=== PATIENT | female | born 1975 | race Caucasian/White ===

== ENCOUNTER 2021-09-12 11:22 | Outpatient (REF) | payer OTHER, SELFPAY ==
[2021-09-12 14:35] LABS: Alanine Aminotransferase 30 U/L (0-31); Albumin Level 4.2 g/dL (3.5-5.0); Alkaline Phosphatase 21 U/L (39-117); Anion Gap 13 (12-20); Aspartate Amino Transferase 27 U/L (5-31); Bilirubin Total 0.8 mg/dL (0.0-1.0); Blood Urea Nitrogen 6 mg/dL (9-16); Calcium 9.2 mg/dL (8.4-10.2); Carbon Dioxide 24 mmol/L (22-29); Chloride 106 mmol/L (96-108); Cholesterol 197 mg/dL; Estimated Glomerular Filt Rate > 60; Glucose Fasting 81 mg/dL (60-99); HDL Cholesterol 50 mg/dL; LDL Cholesterol Calculated 124 mg/dl; Potassium 3.9 mmol/L (3.3-5.1); Sodium 139 mmol/L (135-145); Total Protein 6.9 g/dL (6.5-8.0); Triglycerides 119 mg/dL
[2021-09-12 14:48] LABS: TSH reflex Free T4 0.78 uIU/mL (0.32-4.0)
[2021-09-16 18:11] LABS: Vitamin A 41 mcg/dL (38-98)
== END 2021-09-12 11:23 | disposition home or self-care (01) ==
LOC: HO.WFDLDS 11:22
PROVIDERS: Visit Provider Family Medicine
DX: Z00.00 Encounter for general adult medical examination without abnormal findings (principal); H53.9 Unspecified visual disturbance
CPT/HCPCS: 36415; 80053; 80061; 84443; 84590

== ENCOUNTER 2023-11-02 11:52 | Outpatient (AMB) | payer OTHER, MEDICAID, SELFPAY ==
[2023-11-02 12:36] VITALS: BP 126/78; PULSE 81; O2SAT 98; BMI 33.9
--- NOTE | 2023-11-02 12:36 | MHC.OFFWIV ---
Intake Vital Signs 11/02/23 12:36 Height 5 ft 5 in Weight 204 lb BMI 33.9 BP 126/78 Blood Pressure Location Lt brachial Position Sitting Pulse 81 Pulse Source Pulse Oximeter Pulse Oximetry (%) 98 Oxygen Delivery Method Room Air Intake Visit Reasons: EP RT shoulder Intake Note: Patient is here with pain in right shoulder, hurts to even lift her arm since , getting worse. Patient Tobacco Use Status: Never used Tobacco Allergies No Known Allergies Allergy (Verified 11/02/23 12:56) Medication List - Last Reconciled 11/02/23 by Brittany Bean CNP No Known Home Meds Do you need a note to return to daycare/school/sports/work: No HPI HPI Comments History of Present Illness Details 48-year-old female presents to walk-in clinic for complaint of right shoulder pain x3 days. She denies Trauma, or injury, but does endorse working out on Saturday, Saturday, and Saturday and woke up and could not move her arm due to the pain. She has not taken anything for the pain, and is unable to put on her jacket or get dressed with out the help from her . She also tells this provider she has had this pain in her right shoulder intermittently for some time, but not as severe as this. She rates her pain a 10 on pain scale 0-10, she admits to right shoulder pain that radiates down her right arm, with associated numbness and tingling sensation of right hand and fingers. She denies neck pain, headache, fever, chills, CP, SOB, dizziness, abdominal pain, nausea, vomiting, changes in bowels or bladder. [facility] Surgical History No pertinent past surgical history Family History Mother No problems noted. Father No problems noted. Other Mental health disorder Social History Housing: House Alcohol intake: current Alcohol intake frequency: a few times a week Patient Tobacco Use Status: Never used Tobacco e-Cigarette/Vaping Use: Never Used Second Hand Smoke Exposure: No service: No Current occupational status: employed Current occupation: [employer] Cognitive needs: No Hearing needs: No Vision needs: Yes (Glasses) Review of Systems Const All systems reviewed & are unremarkable except as noted in HPI and below Physical Exam Vital Signs: Last Vital Signs Pulse 81 11/02/23 12:36 BP 126/78 11/02/23 12:36 Pulse Ox 98 11/02/23 12:36 Oxygen Delivery Method Room Air 11/02/23 12:36 BMI result Body Mass Index 33.9 Const General: healthy appearing and no acute distress Nutritional Appearance: overweight Orientation/consciousness: patient oriented x3 Limitations: other limitations (limitations of right arm) HEENT Head: Yes normal to inspection, Yes normocephalic and Yes atraumatic Ears: hearing grossly normal bilaterally and TM's normal bilaterally Mouth: moist mucous membranes Eyes General: appearance normal, both eyes and all related structures Neck Neck: Yes normal visual inspection, Yes full ROM, Yes no meningeal signs, Yes trachea midline and Yes supple Chest Chest palpation & inspection: normal inspection of the chest Resp Effort & Inspection: normal respiratory effort, no respiratory distress and not tachypneic Auscultation: clear to auscultation bilaterally Cardio Rate: regular rate Rhythm: regular rhythm Heart sounds: S1 normal heart sound present and S2 normal heart sound present Peripheral pulses: Peripheral pulses 2+ throughout GI Palpation (GI): Soft to palpation and nontender Auscultation: normal bowel sounds Neuro General: patient oriented x3, gait normal and no meningeal signs Extrem Right upper extremity: normal to inspection, normal capillary refill and shoulder/upper arm Details: tenderness Location: over the subacromial bursa, axillary nerve sensory function normal and abnormal ROM Details: pain with active ROM, pain with passive ROM and with range as follows (20% active ROM, 80% passive ROM); no swelling, no ecchymosis, no crepitus, no deformity and no unusual warmth; no cyanosis, no edema and joint enlargement noted Left upper extremity: normal to inspection, full ROM and normal capillary refill; no cyanosis Psych Appearance: well kempt Mental Status: mental status grossly normal Affect: normal affect Attitude: cooperative Results Reviewed Results Reviewed: [facility] [address] [place] [address] XRay Report Signed Patient: Gisela Baires MR#: [id number] : 1975 Acct:[id number] Age/Sex: 48 / F ADM Date: 11/02/23 Loc: HO.HMGCX Attending Dr: Brittany Bean CNP Ordering Physician: Brittany Bean CNP Date of Service: 11/02/23 Procedure(s): XR shoulder RT min 2V Accession Number(s): [id number] cc: Brittany Bean CNP~ EXAMINATION: XR SHOULDER, RIGHT CLINICAL INFORMATION: Pain COMPARISON: None available. TECHNIQUE: AP external rotation, Grashey, scapular Y, and axillary views of the right shoulder. FINDINGS: The bones and soft tissues are notable for moderate subacromial enthesophyte. No fracture. Glenohumeral and acromioclavicular alignment is anatomic with normal joint space. No abnormal soft tissue calcifications. XR/XR shoulder RT min 2V IMPRESSION: No acute findings. Moderate subacromial enthesophyte. Dictated By: Mario Vieira MD Signed By: <Electronically signed by Mario Vieira MD in OV> 11/02/23 1349 DD/ 1316 TD/TT: Kier Boiler: SL Assessment & Plan Assessment & Plan (1) Shoulder impingement syndrome: Code(s): M75.40 - Impingement syndrome of unspecified shoulder Qualifiers: Laterality: right Qualified Code(s): M75.41 - Impingement syndrome of right shoulder Plan: 48-year-old female seen in walk-in clinic for complaint of right shoulder pain x3 days, with previous reported intermittent right shoulder pain but more severe over the last 3 days. She denies Trauma, or injury, but does endorse working out on Saturday, Saturday, and Saturday and woke up and could not move her arm due to the pain. Xray of Right shoulder ordered and completed; provider reviewed results with patient; The bones and soft tissues are notable for moderate subacromial enthesophyte. No fracture. Glenohumeral and acromioclavicular alignment is anatomic with normal joint space. No abnormal soft tissue calcifications. Will treat with: 1. Tylenol 1000 mg, orally, every 6 hours as needed for right shoulder pain. 2. Lidocaine patch, available [id number] and should be apply to area of maximal tenderness as directed on the outside packaging. 3. Ibuprofen 800 mg, orally with milk or food, every 8 hours as needed for right shoulder pain. 4. Ice to muscle pain twice a day, may alternate w/ heat therapy. 5. Provided with right arm sling for comfort. 6. Encouraged to f/u with PCP for possible referral to Physical therapy, pain clinic for steroid injection if pain persists, and or referral to orthopedic Call office, or go to ER for acute worsening of symptoms. Orders: Orders XR shoulder RT min 2V 11/02/23 M25.511 - Pain in right shoulder Medications: New ibuprofen 800 mg PO Q8H PRN 20 tabs 0RF pain S46.911A - Strain of unspecified muscle, fascia and tendon at shoulder and upper arm level, right arm, initial encounter lidocaine 5% leave on most painful area for up to 12 hrs 1 patch topical DAILY 15 ea 0RF S46.911A - Strain of unspecified muscle, fascia and tendon at shoulder and upper arm level, right arm, initial encounter Coding Level of Care Code Est Pt Level 4 (75852) Diagnoses Impingement syndrome of right shoulder M75.41 Laterality: right
== END 2023-11-02 13:44 | disposition home or self-care (01) ==
PROVIDERS: PCP Family Medicine; Visit Provider Nurse Practitioner Acute Care
DX: M75.41 Impingement syndrome of right shoulder (principal)
CPT/HCPCS: 99051; 99214

== ENCOUNTER 2023-11-02 13:05 | Outpatient (REF) | payer OTHER, SELFPAY ==
--- NOTE | ~2023-11-02 | XR_ITS ---
EXAMINATION: XR SHOULDER, RIGHT CLINICAL INFORMATION: Pain COMPARISON: None available. TECHNIQUE: AP external rotation, Grashey, scapular Y, and axillary views of the right shoulder. FINDINGS: The bones and soft tissues are notable for moderate subacromial enthesophyte. No fracture. Glenohumeral and acromioclavicular alignment is anatomic with normal joint space. No abnormal soft tissue calcifications. XR/XR shoulder RT min 2V IMPRESSION: No acute findings. Moderate subacromial enthesophyte.
== END 2023-11-02 13:06 | disposition home or self-care (01) ==
LOC: HO.HMGCX 13:05
PROVIDERS: Visit Provider Nurse Practitioner Acute Care
DX: M25.511 Pain in right shoulder (principal)
CPT/HCPCS: 73030

== ENCOUNTER 2023-11-06 12:20 | Outpatient (AMB) | payer OTHER, MEDICAID, SELFPAY ==
--- NOTE | 2023-11-06 12:32 | MHC.PC.OV ---
Vital Signs 11/06/23 12:34 Height 5 ft 5 in Weight 210 lb BMI 34.9 BP 121/72 Blood Pressure Location Lt brachial Position Sitting Pulse 73 Pulse Source Pulse Oximeter Pulse Oximetry (%) 99 Oxygen Delivery Method Room Air Intake Visit Reasons: shoulder pain Intake Note: Patient is here for follow up on right shoulder pain. Allergies No Known Allergies Allergy (Verified 11/06/23 12:35) Tobacco use date assessed: 11/06/23 Dental Screening Dental Screen Date: 11/06/23 HPI HPI Comments History of Present Illness Details Here today to follow-up on right shoulder pain. She was seen at the walk-in on 11/02/2023. At this visit an x-ray of the right shoulder was done and this shows that the bones and soft tissues are notable for moderate subacromial enthesophyte. No fracture. Glenohumeral and AC alignment is anatomic with normal joint space no abnormal soft tissue calcifications. She was discharged home with supportive care and advised to follow-up here at primary care to discuss referral for physical therapy or perhaps pain management. Since this time she has been using Tylenol and ibuprofen. Admits that she is not taking very often though she does not like to take medications. She has been resting the arm as well as applying ice. She admits that the right shoulder is overall better and her range of motion is also better since the last visit. She use the sling for 2 days and is no longer using it. She is very eager to get back to her normal way of life which includes exercising at the gym daily reviewed the mechanism of injury and noted that she had repetitive pulling and pushing motions as well as kettle gutierrez overhead exercises prior to the onset of her pain. She is willing and would like to participate in physical therapy [facility] Surgical History No pertinent past surgical history Family History Mother No problems noted. Father No problems noted. Other Mental health disorder Social History Housing: House Alcohol intake: current Alcohol intake frequency: a few times a week Patient Tobacco Use Status: Never used Tobacco e-Cigarette/Vaping Use: Never Used Second Hand Smoke Exposure: No service: No Current occupational status: employed Current occupation: [employer] Cognitive needs: No Hearing needs: No Vision needs: Yes (Glasses) Questionnaire Thrive Questionnaire Date Thrive assessed: 09/12/21 JUANCHO-7 AMB Questionnaire JUANCHO-7 Date JUANCHO - 7 assessed: 09/12/21 Source: Developed by Drs. Saravanan Adam, Barb Ariza, José Allen and colleagues, with an educational kori from [employer]. Review of Systems Const All systems reviewed & are unremarkable except as noted in HPI and below Physical exam (Primary Care) Vital Signs: Last Vital Signs Pulse 73 11/06/23 12:34 BP 121/72 11/06/23 12:34 Pulse Ox 99 11/06/23 12:34 Oxygen Delivery Method Room Air 11/06/23 12:34 BMI result Body Mass Index 34.9 Tobacco/Smoking Status: Tobacco use Status Tobacco use date assessed 11/06/23 11/06/23 12:37 Patient Tobacco Use Status Never used Tobacco 11/06/23 12:32 e-Cigarette/Vaping Use Never Used 11/06/23 12:32 Thrive Assessment: Date of Thrive Assessment Date Thrive assessed 09/12/21 11/06/23 12:32 Const Other: Alert oriented and appropriate Speaking in full sentences Right upper extremity normal to inspection, normal capillary refill continues with tenderness with palpation over subacromial bursa, axillary nerve sensory function normal. Pain with active range of motion as well as passive range of motion although improved from the previous assessment. There is no swelling, no ecchymosis, no crepitus, no unusual warmth, no cyanosis or joint enlargement noted Assessment and Plan Assessment & Plan (1) Shoulder impingement syndrome: Code(s): M75.40 - Impingement syndrome of unspecified shoulder Qualifiers: Laterality: right Qualified Code(s): M75.41 - Impingement syndrome of right shoulder (2) Muscle strain of right shoulder: Code(s): S46.911A - Strain of unspecified muscle, fascia and tendon at shoulder and upper arm level, right arm, initial encounter Qualifiers: Encounter type: initial encounter Qualified Code(s): S46.911A - Strain of unspecified muscle, fascia and tendon at shoulder and upper arm level, right arm, initial encounter (3) Severe pain of right shoulder: Code(s): M25.511 - Pain in right shoulder Plan Discussed the mechanism of injury. Advised to avoid any repetitive motions or any movements that exacerbate the shoulder. I have also advised her against complete immobility and use the sling as this can put her at risk for frozen shoulder. I provided her with several exercises that she should try. She should also participate in physical therapy and referral has been placed today. She can continue to use the Tylenol and NSAIDs as needed Total time spent caring for the patient today was 30 minutes. This includes time spent before the visit reviewing the chart, time spent during the visit, and time spent after the visit on documentation This note is constructed using voice recognition software. While every effort has been made to ensure accuracy in production line worker, still errors may have been included Sometimes, these errors may affect the content or meaning of the given sentence . Orders: Orders PT Evaluation and Treatment Today M25.511 - Pain in right shoulder, M75.40 - Impingement syndrome of unspecified shoulder, S46.911A - Strain of unspecified muscle, fascia and tendon at shoulder and upper arm level, right arm, initial encounter Coding Level of Care Code Est Pt Level 4 (19069) Diagnoses Impingement syndrome of right shoulder M75.41 Laterality: right Muscle strain of right shoulder, initial encounter S46.911A Encounter type: initial encounter Severe pain of right shoulder M25.511
[2023-11-06 12:34] VITALS: BP 121/72; PULSE 73; O2SAT 99; BMI 34.9
== END 2023-11-06 13:08 | disposition home or self-care (01) ==
PROVIDERS: PCP Family Medicine; Visit Provider Nurse Practitioner Family
DX: M75.41 Impingement syndrome of right shoulder (principal); S46.911A Strain of unspecified muscle, fascia and tendon at shoulder and upper arm level, right arm, initial encounter; M25.511 Pain in right shoulder
CPT/HCPCS: 99214

== ENCOUNTER 2024-01-28 11:00 | Outpatient (RCR) | payer OTHER, SELFPAY ==
--- NOTE | 2023-11-21 16:00 | MHC.PT.EP ---
[facility] [place] [facility] [place] [facility] [place] [facility] [address] [place] [address] [phone] F: [phone] F: [phone] F: [phone] F: [phone] Physical Therapy Plan of Care Date of Evaluation: 11/18/23 Date of Surgery: Diagnosis: M75.40 Impingement syndrome of unspecified shoulder, S46.911A Strain of unspecified muscle, fascia and tendon, at shoulder and upper arm level, right, initial encounter, M25.511 Pain in R shoulder, Shoulder impingement syndrome, muscle strai of R shoulder, Severe pain in R shoulder date of referral 11/07/23 Alina REGANLILIA Assessment: 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 Pt exhibits decreased AROM (near full PROM with some pain end range), impaired strength, and reports pain in neck and shoulder with active elevation. Pt expressing intermittent parathesias radiating down R UE (no specific patterning noted). Pt would benefit from attending skilled PT services at a frequency of 2x/week x 4-6 weeks to address impairments. At [facility], negative cervical screening was noted. Pt expressing onset of sx began when using weighted kettlebells (flexion swings) during boot-camp classes 3x in a row. Pt reports after this was unable to lift her arm for a short duration. Pt was given a sling which she used for a short duration of time after being seen by walk-in office. Pt obtained xrays. At time of evaluation, pt exhibited signs and sx consistent with bicep tendonitis, however pt was also noted to exhibit sx with shoulder flexion and IR of shoulder during exam. Addendum: During follow up screening on 11/21/23 clustering of sx was positive for TOS. Pt (+) NAN, costoclavicular testing, overhead and elevation triggered paratheisas. Some relief was noted with brief trial of manual cervical traction (-) vertebral artery testing completed prior to attempt of manual C-tx). Pt was educated re: doorway/pectoralis/cervical stretches in sitting/standing with triggering of sx. Pt will benefit from a stretching postural program with a heavy HEP program to address sx. Pt will be seen in the office at a frequency of 2x/week x 4-6 weeks to address. Should sx not improve, centralize/resolve with therapy, patient may benefit from a follow up to determine next course of imaging/need for MRI. Frequency and Duration: The patient will be seen 2x/week x 6 weeks Short Term Goals: 1. Pt will demonstrate 25% reduction in SPADI pain score. 2. Pt will demonstrate carryover of self care/management of sx/initiate HEP. 3. Pt will demonstrate AAROM flexion to 110 degrees. 4. Pt will demonstrate strength R shoulder flexion to 4/5. 5. Pt will centralize R UE sx to height of C/S. Group Home Goals: 1. I HEP. 2. Resume gym participation with good carryover of self management/skills. 3. Pt will demonstrate R shoulder AROM to symmetry to resemble L UE. 4. Strength 5/5 throughout R UE. 5. Sleeping/working/exercise MOD I R UE without sx. Treatment Plan: Modalities to reduce pain, spasms and effusion. Manual therapy to restore motion and function. Therapeutic exercise to improve strength and flexibility. Neuromuscular re-education for posture and balance. Therapeutic activities to return to functional activities of daily living. Electronically signed by: Elizabeth Wolf, PT, DPT Please sign and return to therapist. Thank you for your referral.
--- NOTE | 2024-02-10 11:08 | MHC.PT.OD ---
[facility] [place] [facility] [place] [facility] [place] [facility] [address] [place] [address] [phone] F: [phone] F: [phone] F: [phone] F: [phone] Physical Therapy Daily Note Diagnosis: M75.40 Impingement syndrome of unspecified shoulder, S46.911A Strain of unspecified muscle, fascia and tendon, at shoulder and upper arm level, right, initial encounter, M25.511 Pain in R shoulder, Shoulder impingement syndrome, muscle strai of R shoulder, Severe pain in R shoulder date of referral 11/07/23 Alina SAMUELP- Date of Surgery: Date of Evaluation: 11/18/23 Date of Treatment: 01/28/24 Treatments to Date: Cancellations to Date: No Shows to Date: Authorized Visits: 9 Insurance End Date: Precautions/ Contraindications: Subjective: Has not been in PT since 01/07/24. Continues to have pain with daily task, unable to tolerate weight- training. Pt state Pain Score and Location: Objective Flowsheet: Tests & Measures 6/10, icing a few times per week, not taking anything over the counter. Exercises UE SCI-FIT bike level 2.0 x 10 minutes posteriorly Tricep extension with RTB x 3 sets 10R, upright rows with RTB x 3 sets 10R, shoulder extension with RTB x 2 sets 10R, review of scap retraction against foam roller x 2 sets 10R, shoulder row with RTB with scap retraction, review of performing exercises that do not cause pain, review of ROM IASTM to R UT in effort to ease mm tension and ease pain. Reviewed stretches with good carryover reported. Modalities Pt defer traction this date. Assessment: 01/28/24: Pt started PT on 11/18/23 and has attended 9 session of PT demonstrating some limited improvement with limited gains in mobility/pain of her R UE. Pt would benefit from referral to orthopedics and/or MRI of the L shoulder as she continues to have pain, limited range of motion, and weakness. Pt continues to exhibits pain rating 6/10 and has limited tolerance for AROM. She has painful arc, (+) ttp supraspinatus, subscapularis and long head biceps. In PT patient has completed AAROM/AROM of the R shoulder, periscap, and RTC strengthening. Initially she had radiating pain into her hand which has since centralized. She has had limited tolerance for weight-bearing exercises and admits to trying other exercises at home on her own (even some which she has been advised to hold from due to mechanics/trigger of sx). Pt was encouraged to make a follow up with her PCP to discuss status and place a referral to orthopedics. She has not been icing her shoulder or taking any over the counter with any consistency (was icing more before but has since stopped doing this). She was educated in the benefit of performing exercises which are pain free and benefit of ice prn to aide in pain of R shoulder. 01/07/24: Pt expressing no parathesias in her UE, reports doing well in regard to HEP but still having sx when reaching or moving quickly. Pt remains weak in lower and middle trap, sx with trial of prone raises over pball, therefore was stopped and reduced to hooklying with band with better outcomes. 12/23/23: Pt doing well, encouraged to increase reps of exercise to tolerance without increasing weights. Pt encouraged to perform 3# and advance reps. Pt expressing fatigue at end of session. Pt requesting to trial I HEP. Pt educated re: mechanics of shoulder/neck to maximize gains. 12/09/23 Doing well in regard to centralization of sx, fatigues quickly with gentle strengthening program. 12/05/23: Pt demonstrating positive response to strengthening activities with reduction in sx. Pt defer traction and taping this date, expresses centralization of sx. 12/02/23: (Had to leave early today due to conflicting appt afterwards). Pt demonstrating positive early response to traction treatment; increased hold time for fifteen minutes this date with good ability. 11/29/23: Pt expressing early positive response to stretches with centralization and reduction in intensity of sx reported. Pt was initiated with trial of [employer] C-tx unit with positive response, further centralization of sx. At start of visit, parathesias present digits 3-5 in R UE, upon completion of traction digit sx reduced to height of C/S. Sx expressed R periscap, reduced with C-tx. Pt encouraged to work on posture, pay attention to position and encouraged to stretch often throughout the day. Will plan to add postural strengthening task next visit. 11/21/23: Pt's sx triggered with active/aarom elevation. Positive clustering for TOS (+) TTP sx triggered with palpation distal clavicle and first rib on R. Pt notes to have change in temperature (cold to touch) of R UE compared to L. Reports parathesias are variable fro first 3 to last 3 (difficult to discern). Pt encouraged to perform low reps, high frequency of stretches to tolerance. Pt encouraged to consider obtaining wale for home use. 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 Pt exhibits decreased AROM (near full PROM with some pain end range), impaired strength, and reports pain in neck and shoulder with active elevation. Pt expressing intermittent parathesias radiating down R UE (no specific patterning noted). Pt would benefit from attending skilled PT services at a frequency of 2x/week x 4-6 weeks to address impairments. At al, negative cervical screening was noted. Pt expressing onset of sx began when using weighted kettlebells (flexion swings) during boot-camp classes 3x in a row. Pt reports after this was unable to lift her arm for a short duration. Pt was given a sling which she used for a short duration of time after being seen by walk-in office. Pt obtained xrays. At time of evaluation, pt exhibited signs and sx consistent with bicep tendonitis, however pt was also noted to exhibit sx with shoulder flexion and IR of shoulder during exam. Addendum: During follow up screening on 11/21/23 clustering of sx was positive for TOS. Pt (+) NAN, costoclavicular testing, overhead and elevation triggered paratheisas. Some relief was noted with brief trial of manual cervical traction (-) vertebral artery testing completed prior to attempt of manual C-tx). Pt was educated re: doorway/pectoralis/cervical stretches in sitting/standing with triggering of sx. Pt will benefit from a stretching postural program with a heavy HEP program to address sx. Pt will be seen in the office at a frequency of 2x/week x 4-6 weeks to address. Should sx not improve, centralize/resolve with therapy, patient may benefit from a follow up to determine next course of imaging/need for MRI. PT Plan: Assess response to cervical stretches, AAROM shoulder flexion Add progression rows/ext postural strengthening next visit. Short Term Goals: 1. Pt will demonstrate 25% reduction in SPADI pain score. 2. Pt will demonstrate carryover of self care/management of sx/initiate HEP. 3. Pt will demonstrate AAROM flexion to 110 degrees. 4. Pt will demonstrate strength R shoulder flexion to 4/5. 5. Pt will centralize R UE sx to height of C/S. Snf Goals: 1. I HEP. 2. Resume gym participation with good carryover of self management/skills. 3. Pt will demonstrate R shoulder AROM to symmetry to resemble L UE. 4. Strength 5/5 throughout R UE. 5. Sleeping/working/exercise MOD I R UE without sx. Electronically signed by: Elizabeth Wolf, PT, DPT
== END 2024-03-30 07:47 | disposition home or self-care (01) ==
LOC: HO.PTWFD 11:00
PROVIDERS: PCP Family Medicine; Visit Provider Nurse Practitioner Family
DX: M75.40 Impingement syndrome of unspecified shoulder (principal); S46.911A Strain of unspecified muscle, fascia and tendon at shoulder and upper arm level, right arm, initial encounter; M25.511 Pain in right shoulder
CPT/HCPCS: 97012; 97110; 97140; 97150; 97161; 97535

== ENCOUNTER 2024-08-20 11:56 | Outpatient (AMB) | payer OTHER, SELFPAY ==
--- NOTE | 2024-08-20 12:16 | A.OFFPC_ITS ---
Vital Signs 08/20/24 12:18 Height 5 ft 6 in Weight 189 lb BMI 30.5 BP 114/62 Blood Pressure Location Lt brachial Position Sitting Pulse 83 Pulse Source Pulse Oximeter Pulse Oximetry (%) 98 Oxygen Delivery Method Room Air Intake Visit Reasons: Physical Allergies No Known Allergies Allergy (Verified 08/20/24 12:20) Medication List - Last Reconciled 08/20/24 by SHEREEN Wong-LILIA Tobacco use date assessed: 11/06/23 Dental Screening Dental Screen Date: 11/06/23 HPI HPI Comments History of Present Illness Details 49 y/o F with perimenopause, obesity Health Maintenance: ? Colon has never had one done ? Mammo 2020, last one 2022 @ [facility], wishes to do this every other year ? DEXA n/a ? 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 Tdap declined Flu - declined Specialists: Optho, wears glasses Ortho Chiro Derm Here today for CPE & Pre-op For general wellness: Completed PT for R shoulder. She cont w/ pain and having stiffness, difficult ROM. Sx are worse at night. Wonders about additional f/u. Will be going to chiro for back pain, has chronic back and joint pain Last eye exam 11/2023 Skin dry patch on cheek, right, active w/ [facility] Here today for preoperative clearance. Surgery Type: ETT and BBL Anesthesia Type: General Surgeon: Kobi Ramos [address] [place] [address] Date: October 14 2024 Any past surgical procedures: yes Any complications from anesthesia or in post-op period: none ASA or NSAID Use: none Current smoker: no Alcohol use: no Drug use: no METs: > 4 climb flight of stairs, golf, walk, yardwork Medical history: Asthma no COPD no Obesity BMI 30.5 Diabetes no Education Aspirin and NSAIDS should be discontinued one week before surgery to prevent excessive bleeding. If you are a smoker, there is increase risk of post surgical complications. Cessation is encouraged. Follow up with surgeon and all recommendations pre and post operatively. Plan: Patient is aware that she will not be medically Claritin until she completes the required labs, diagnostics. These are ordered for her and she should get them done within the timeframe requested by the surgeon. Once these are available to review I can add an addendum for surgical clearance. In other regards, return to the office in 1 year for complete physical exam, sooner as needed. An additional 30 minutes was spent addressing the problem(s) noted at todays visit. This includes time spent before the visit reviewing the chart, time spent during the visit, and time spent after the visit on documentation [facility] Surgical History No pertinent past surgical history Family History Mother No problems noted. Father No problems noted. Other Mental health disorder Social History Housing: House Alcohol intake: current Alcohol intake frequency: a few times a week Patient Tobacco Use Status: Never used Tobacco e-Cigarette/Vaping Use: Never Used Second Hand Smoke Exposure: No service: No Current occupational status: employed Current occupation: [employer] Cognitive needs: No Hearing needs: No Vision needs: Yes (Glasses) Questionnaire PHQ-9 Over the last 2 weeks, how often have you been bothered by any of the following problems? 1. Little interest or pleasure in doing things: not at all 2. Feeling down, depressed, or hopeless: not at all 3. Trouble falling or staying asleep, or sleeping too much: not at all 4. Feeling tired or having little energy: not at all 5. Poor appetite or overeating: not at all 6. Feeling bad about yourself - or that you are a failure or have let yourself or your family down: not at all 7. Trouble concentrating on things, such as reading the newspaper or watching television: not at all 8. Moving or speaking so slowly that other people could have noticed. Or the opposite - being so fidgety or restless that you have been moving around a lot more than usual: not at all 9. Thoughts that you would be better off or of hurting yourself in some way: not at all Total score: 0 Depression Screening Interpretation: Negative Depression Screening Done: Yes 11346 - PHQ-9 Billing: Yes Source: Developed by Drs. Saravanan Adam, Barb Ariza, José Allen and colleagues, with an educational kori from [employer]. Thrive Questionnaire Date Thrive assessed: 08/13/24 I am a: Patient What is your living situation today?: I have a steady place to live Within the past 12 months, did the food you bought not last and you didn't have the money to get more?: Never true Within the past 12 months, did you worry whether your food would run out before you got money to buy more?: Never true Do you have trouble paying for medicines?: No Do you have trouble getting transportation to medical appointments?: No Do you have trouble paying your heating and electricity bill?: No Do you have trouble taking care of your child, family member or friend?: No Do you have trouble with day-to-day activities such as bathing, preparing meals, shopping, managing finances, etc.?: No Are you currently unemployed and looking for a job?: No Are you interested in more education?: No Please select the resources that you would like help with: None THRIVE Score: 0 AUDIT C Alcohol Use Questionnaire (AUDIT-C) 1. How often do you have a drink containing alcohol?: 2-4 times a month 2. How many drinks containing alcohol do you have on a typical day when you are drinking?: 1 or 2 Total Score: 2 Score Reviewed/Action Taken: Yes JUANCHO-7 AMB Questionnaire JUANCHO-7 Date JUANCHO - 7 assessed: 08/20/24 Feeling nervous, anxious, or on edge: 0 = Not at all Not being able to stop or control worryin = Not at all Worrying too much about different things: 0 = Not at all Trouble relaxin = Not at all Being so restless that it is hard to sit still: 0 = Not at all Becoming easily annoyed or irritable: 0 = Not at all Feeling afraid as if something awful might happen: 0 = Not at all Total JUANCHO-7 score (0-4 normal; 5-9 mild; 10-14 moderate; 15-21 severe): 0 Source: Developed by Drs. Saravanan Adam, Barb Ariza, José Allen and colleagues, with an educational kori from [employer]. JUANCHO-7 Assessment Billing JUANCHO-7 Assessment Tool: JUANCHO-7 Assessment 13621 Physical exam (Primary Care) Vital Signs: Last Vital Signs Pulse 83 08/20/24 12:18 BP 114/62 08/20/24 12:18 Pulse Ox 98 08/20/24 12:18 Oxygen Delivery Method Room Air 08/20/24 12:18 BMI result Body Mass Index 30.5 BMI Assessment/Plan discussion: High BMI High, discussed plan: lifestyle Tobacco/Smoking Status: Tobacco use Status Tobacco use date assessed 11/06/23 08/20/24 12:20 Patient Tobacco Use Status Never used Tobacco 08/20/24 12:20 e-Cigarette/Vaping Use Never Used 08/20/24 12:20 PHQ-9: PHQ-9 Score PHQ-9: Total score 0 08/20/24 12:42 Depression Screening Interpretation: Negative Thrive Assessment: Date of Thrive Assessment Date Thrive assessed 08/13/24 08/20/24 12:20 Const Other: General: Well developed, well nourished, in no acute distress. Appears stated age. Head: Normocephalic, atraumatic. Eyes: Pupils are equal, round and reactive to light and accommodation. Conjunctivae are clear. Vision grossly normal. Ears: TMs clear AU, EACS WNL Nose: Patent, without discharge. Mouth: There are no ulcers or lesions noted. No inflammation, no post nasal drip, no plaques nor exudates. Neck: Supple, no adenopathy or thyromegaly. Lungs: Clear to auscultation bilaterally. No rales, rhonchi or wheeze noted. Good air flow in all wyatt. Heart: Regular rate and rhythm. No murmurs, click, rubs or gallops are noted. Abdomen: Bowel sounds present in all quadrants. The abdomen is soft, nontender, with no masses or organomegaly noted. No hernias are noted. Musculoskeletal: Joints are nontender, without swelling, redness, or effusions. Range of motion is observed to be normal. Pulses: Peripheral pulses are equal and palpable bilaterally. Extremities: No clubbing, cyanosis nor edema is noted. Neurologic: Gait and station normal. Cranial Nerves 2-12 intact. Motor strength grossly symmetrical and intact. No sensory loss. Balance normal. Skin: No rashes, ulcers, or lesions noted. Turgor is good. Skin color is good. Hair and nails are without abnormalities. Psych: Normal eye contact, affect and mood appropriate, and normal interactions. Patient is alert and appropriate to context. Coding Level of Care Code Est Pt Level 4 (57116) Est Pt Prev Care 40-64y(59871) Diagnoses Encounter for general adult medical examination with abnormal findings Z00.01 Severe pain of right shoulder M25.511 Pre-operative clearance Z01.818 Muscle strain of right shoulder, initial encounter S46.911A Encounter type: initial encounter Impingement syndrome of right shoulder M75.41 Laterality: right Screen for colon cancer Z12.11 Laboratory exam ordered as part of routine general medical examination Z00.00 Vegetarian diet Z78.9 BMI 30.0-30.9,adult Z68.30 Obesity, Class I, BMI 30.0-34.9 (see actual BMI) E66.811 Additional Codes JUANCHO-7 Assessment Billing - JUANCHO-7 Assessment Tool: JUANCHO-7 Assessment 71555 ([id number]) PHQ-9 - 03433 - PHQ-9 Billing: Yes ([id number]) Assessment & Plan Assessment & Plan (1) Encounter for general adult medical examination with abnormal findings: Code(s): Z00.01 - Encounter for general adult medical examination with abnormal findings Plan: . (2) Severe pain of right shoulder: Code(s): M25.511 - Pain in right shoulder Category: Medical Plan: . (3) Pre-operative clearance: Code(s): Z01.818 - Encounter for other preprocedural examination Category: Medical Plan: . (4) Muscle strain of right shoulder: Code(s): S46.911A - Strain of unspecified muscle, fascia and tendon at shoulder and upper arm level, right arm, initial encounter Category: Medical Qualifiers: Encounter type: initial encounter Qualified Code(s): S46.911A - Strain of unspecified muscle, fascia and tendon at shoulder and upper arm level, right arm, initial encounter Plan: . (5) Shoulder impingement syndrome: Code(s): M75.40 - Impingement syndrome of unspecified shoulder Category: Medical Qualifiers: Laterality: right Qualified Code(s): M75.41 - Impingement syndrome of right shoulder Plan: . (6) Screen for colon cancer: Code(s): Z12.11 - Encounter for screening for malignant neoplasm of colon Category: Medical Plan: . (7) Laboratory exam ordered as part of routine general medical examination: Code(s): Z00.00 - Encounter for general adult medical examination without abnormal findings Category: Medical Plan: . (8) Vegetarian diet: Code(s): Z78.9 - Other specified health status Category: Social Hx Plan: . (9) BMI 30.0-30.9,adult: Code(s): Z68.30 - Body mass index [BMI] 30.0-30.9, adult Category: Medical Plan: . (10) Obesity, Class I, BMI 30.0-34.9 (see actual BMI): Code(s): E66.811 - Obesity, class 1 Category: Medical Plan: . Orders: Orders Drug Screen Urine Today Z.818 - Encounter for other preprocedural examination ECG 12 lead EKG Today Z.818 - Encounter for other preprocedural examination Prothrombin Time INR Today Z.818 - Encounter for other preprocedural examination Mixing Study (PT/PTT) Today Z.818 - Encounter for other preprocedural examination UA CC w/rflx Micro + Cult Today Z.818 - Encounter for other preprocedural examination HIV Ab/Ag Today Z.818 - Encounter for other preprocedural examination Nicotine and Metabolite, Quant Today Z01.818 - Encounter for other preprocedural examination TSH reflex Free T4 Today Z00.00 - Encounter for general adult medical examination without abnormal findings Microalbumin, Random (w Creat) Today Z00.00 - Encounter for general adult medical examination without abnormal findings Lipid Panel Today Z00.00 - Encounter for general adult medical examination without abnormal findings Hemoglobin A1c Today Z00.00 - Encounter for general adult medical examination without abnormal findings Vitamin B12 and Folate Today Z78.9 - Other specified health status Complete Blood Count no Diff Today Z.818 - Encounter for other preprocedural examination Comprehensive Met. Panel Today Z.818 - Encounter for other preprocedural examination HCG Quantitative Today Z.818 - Encounter for other preprocedural examination Referrals Orthopedics Referral M25.511 - Pain in right shoulder, M75.41 - Impingement syndrome of right shoulder, S46.911A - Strain of unspecified muscle, fascia and tendon at shoulder and upper arm level, right arm, initial encounter Gastroenterology Referral Z12.11 - Encounter for screening for malignant neoplasm of colon Patient Instructions: Health screenings for women You should visit your health care provider from time to time, even if you are healthy. The purpose of these visits is to: Screen for medical issues Assess your risk for future medical problems Encourage a healthy lifestyle Update vaccinations and other preventive care services Help you get to know your provider in case of an illness Information Even if you feel fine, you should still see your provider for regular checkups. These visits can help you avoid problems in the future. For example, the only way to find out if you have high blood pressure is to have it checked regularly. High blood sugar and high cholesterol levels also may not have any symptoms in the early stages. A simple blood test can check for these conditions. There are specific times when you should see your provider or receive specific health screenings. The [place] Preventive Services Task Force publishes a list of recommended screenings. Below are screening guidelines for women ages 18 to 39. BLOOD PRESSURE SCREENING Your blood pressure should be checked at least once every 3 to 5 years if: Your blood pressure is in the normal range (top number less than 120 mm Hg and bottom number less than 80 mm Hg) You don't have risk factors for high blood pressure Ask your provider if you need your blood pressure checked more often if: The top number is 120 to 129 mm Hg or the bottom number is 70 to 79 mm Hg You have diabetes, heart disease, kidney problems, are overweight, or have certain other health conditions You have a first-degree relative with high blood pressure You are Black You had high blood pressure during a If the top number is 130 mm Hg or greater or the bottom number is 80 mm Hg or greater, this is considered stage 1 hypertension. Schedule an appointment with your provider to learn how you can reduce your blood pressure. Watch for blood pressure screenings in your area. Ask your provider if you can s top in to have your blood pressure checked. BREAST CANCER SCREENING Experts do not agree about the benefits of breast self-exams in finding breast cancer or saving lives. Talk to your provider about what is best for you. A screening mammogram is not recommended for most women under age 40. Your provider may discuss and recommend mammograms, MRI scans, or ultrasounds if you have an increased risk for breast cancer, such as: A mother or sister who had breast cancer at a young age (most often starting screening earlier than the age the close relative was diagnosed) You carry a high-risk genetic marker CERVICAL CANCER SCREENING Cervical cancer screening should start at age 21 years unless your provider advises otherwise. After the first test: Women ages 21 through 29 should have a Pap test every 3 years. Exoprts do not agree on whether HPV testing is recommended for this age group. Women ages 30 through 65 should be screened with either a Pap test every 3 years or the HPV test every 5 years or both tests every 5 years (called cotesting ). Women who have been treated for precancer (cervical dysplasia) should continue to have Pap tests for 20 years after treatment or until age 65, whichever is longer. If you have had your uterus and cervix removed (total hysterectomy), and you have not been diagnosed with cervical cancer or precancer (high grade cervical neoplasia), you do not need cervical cancer screening. CHOLESTEROL SCREENING Cholesterol screening should begin at: Age 45 for women with no known risk factors for coronary heart disease Age 20 for women with known risk factors for coronary heart disease Repeat cholesterol screening should take place: Every 5 years for women with normal cholesterol levels More often if changes occur in lifestyle (including weight gain and diet) More often if you have diabetes, heart disease, kidney problems, or certain other conditions DIABETES SCREENING You should be screened for diabetes starting at age 35 and then repeated every 3 years if you have no risk factors for diabetes. Screening may need to start earlier and be repeated more often if you have other risk factors for diabetes, such as: You have a first degree relative with diabetes. You are overweight or have obesity. You have high blood pressure, prediabetes, or a history of heart disease. Screening for diabetes should be done if you are planning to become and you are overweight and have other risk factors such as high blood pressure. DENTAL EXAM Go to the dentist once or twice every year for an exam and cleaning. Your dentist will evaluate if you need more frequent visits. EYE EXAM Have an eye exam every 5 to 10 years before age 40. If you have vision problems, have an eye exam every 2 years or more often if recommended by your provider. You should have an eye exam that includes an examination of your retina (back of your eye) at least every year if you have diabetes. IMMUNIZATIONS Commonly needed vaccines include: Flu shot: get one every year. COVID-19 vaccine: ask your provider what is best for you. Tetanus-diphtheria and acellular pertussis (Tdap) vaccine: have one at or after age 19 as one of your tetanus-diphtheria vaccines if you did not receive it as an adolescent. Tetanus-diphtheria: have a booster (or Tdap) every 10 years. Varicella vaccine: receive 2 doses if you never had chickenpox or the varicella vaccine. Hepatitis B vaccine: receive 2, 3, or 4 doses, depending on your exact circumstances. Measles, mumps, and rubella (MMR) vaccine: receive 1 to 2 doses if you are not already immune to MMR. Your provider can tell you if you are immune. Ask your provider about the human papillomavirus (HPV) vaccine if: You have not received the HPV vaccine in the past You have not completed the full vaccine series (you should catch up on this shot) Ask your provider if you should receive other immunizations if you have certain health problems that increase your risk for some diseases such as pneumonia. INFECTIOUS DISEASE SCREENING Women who are sexually active should be screened for chlamydia and gonorrhea up until age 25. Women 25 years and older should be screened for chlamydia and gonorrhea if at high risk. Screening for hepatitis C: All adults ages 18 to 79 should get a one-time test for hepatitis C. people should be screened at every . Screening for human immunodeficiency virus (HIV): All people ages 15 to 65 should get a one-time test for HIV. Depending on your lifestyle and medical history, you may also need to be screened for infections such as syphilis and HIV, as well as other infections. PHYSICAL EXAM All adults should visit their provider from time to time, even if they are healthy. The purpose of these visits is to: Screen for disease Assess your risk of future medical problems Encourage a healthy lifestyle Update your vaccinations and other preventive care services Maintain a relationship with a provider in case of an illness Your height, weight, and BMI should be checked at every exam. During your exam, your provider may ask you about: Depression and anxiety Diet and exercise Alcohol and tobacco use Safety issues, such as using seat belts, smoke detectors, and intimate partner violence Your medicines and risk for interactions SKIN SELF-EXAM Your provider may check your skin for signs of skin cancer, especially if you're at high risk, such as if you: Have had skin cancer before Have close relatives with skin cancer Have a weakened immune system OTHER SCREENING Talk with your provider about colon cancer screening if you have a strong family history of colon cancer or polyps, or if you have had inflammatory bowel disease or polyps yourself. Routine bone density screening of women under 40 is not recommended.
[2024-08-20 12:18] VITALS: BP 114/62; PULSE 83; O2SAT 98; BMI 30.5
== END 2024-08-20 12:50 | disposition home or self-care (01) ==
PROVIDERS: PCP Nurse Practitioner Family; Visit Provider Nurse Practitioner Family
DX: Z00.00 Encounter for general adult medical examination without abnormal findings (principal); M25.511 Pain in right shoulder; Z01.818 Encounter for other preprocedural examination; S46.911A Strain of unspecified muscle, fascia and tendon at shoulder and upper arm level, right arm, initial encounter; Z68.30 Body mass index [BMI] 30.0-30.9, adult; E66.811 Obesity, class 1; M75.41 Impingement syndrome of right shoulder; Z12.11 Encounter for screening for malignant neoplasm of colon; Z78.9 Other specified health status

== ENCOUNTER → 2024-08-20 11:56 | Outpatient (BNVA) | payer OTHER, SELFPAY | PROVIDERS: PCP Family Medicine; Visit Provider Nurse Practitioner Family | DX: Z00.01 Encounter for general adult medical examination with abnormal findings (principal); M25.511 Pain in right shoulder; S46.911A Strain of unspecified muscle, fascia and tendon at shoulder and upper arm level, right arm, initial encounter; M75.41 Impingement syndrome of right shoulder; E66.811 Obesity, class 1; Z68.30 Body mass index [BMI] 30.0-30.9, adult; Z78.9 Other specified health status | CPT/HCPCS: 96127 ==

== ENCOUNTER 2024-08-25 09:21 | Outpatient (REF) | payer OTHER, SELFPAY ==
[2024-08-25 11:19] LABS: Hematocrit 41.4 % (37.0-47.0); Hemoglobin 13.6 g/dl (12.0-16.0); Mean Corpuscular HGB Conc 32.9 g/dl (31.0-35.0); Mean Corpuscular Hemoglobin 28.1 pg (27.0-33.0); Mean Corpuscular Volume 85.5 fL (80.0-98.0); Platelet Count 254 X10*3/uL (160-400); Red Blood Count 4.84 X10*6/uL (4.20-5.50); Red Cell Distribution Width 13.2 % (11.0-16.0); White Blood Count 5.5 X10*3/uL (4.8-10.8)
[2024-08-25 11:21] LABS: INTERNATIONAL NORM RATIO 0.9 (0.9-1.1); Prothrombin Time 9.9 SEC (10.9-12.4)
[2024-08-25 11:30] LABS: Estimated Average Glucose 100 mg/dL; Hemoglobin A1C 118.1117 umol/L; Hemoglobin A1c % 5.1 % (<6.0); Total Hemoglobin (HGBA1C) 3642.4797 umol/L
[2024-08-25 11:39] LABS: Partial Thromboplastin Time 30.2 SEC (26.0-36.8)
[2024-08-25 14:22] LABS: Appearance Urine Turbid; Color Urine Yellow; Glucose Urine UA Negative (Negative); Leukocyte Esterase Urine Negative (Negative); Nitrite Urine Negative (Negative); PH 8.5 (5.0-9.0); Urine Blood Negative (Negative); Urine Ketones Negative (Negative); Urine Protein Trace mg/dL (Neg-Trace)
[2024-08-25 14:42] LABS: Amphetamine Screen Urine Not Detected (Not Detect); Barbiturates, Urine Not Detected (Not Detect); Benzodiazepines Screen Urine Not Detected (Not Detect); Buprenorphine Scr Not Detected (Not Detect); Cannabinoid Screen Urine Not Detected (Not Detect); Cocaine Screen Urine Not Detected (Not Detect); Fentanyl, urine Not Detected (Not Detect); Methadone Screen, Urine Not Detected (Not Detect); Opiate Screen Urine Not Detected (Not Detect); Oxycodone Screen Urine Not Detected (Not Detect); Phencyclidine Screen Urine Not Detected (Not Detect)
[2024-08-25 15:11] LABS: Creatinine Urine 197.93 mg/dL; Microalbum/Creatinine Ratio Ur 2.5 ug/mg cr (<30)
[2024-08-25 15:49] LABS: Folate 10.8 ng/mL (> or = 4.0); Vitamin B12 630 pg/mL (200-900)
[2024-08-25 16:01] LABS: Alanine Aminotransferase 21 U/L (0-31); Albumin Level 4.2 g/dL (3.5-5.0); Anion Gap 15 (12-20); Aspartate Amino Transferase 23 U/L (5-31); Bilirubin Total 0.6 mg/dL (0.0-1.0); Blood Urea Nitrogen 8 mg/dL (9-16); Calcium 9.4 mg/dL (8.4-10.2); Carbon Dioxide 22 mmol/L (22-29); Chloride 106 mmol/L (96-108); Cholesterol 204 mg/dL (<200); Estimated Glomerular Filt Rate > 60; Glucose Random 80 mg/dL (60-115); HCG Quantitative < 2 mIU/mL; HDL Cholesterol 57 mg/dL (>40); LDL Cholesterol Calculated 125 mg/dL (<100); Potassium 3.7 mmol/L (3.3-5.1); Sodium 139 mmol/L (135-145); TSH reflex Free T4 1.45 uIU/mL (0.32-4.0); Total Protein 7.2 g/dL (6.5-8.0); Triglycerides 114 mg/dL (<150)
[2024-08-25 17:22] LABS: Alkaline Phosphatase 19 U/L (39-117)
[2024-08-26 04:19] LABS: HIV AB/AG Nonreactive (Nonreactive); HIV Num 1 0.07 S/CO (0.00-0.99)
[2024-08-30 02:39] LABS: Cotinine <2 ng/mL; Nicotine <2 ng/mL
== END 2024-08-25 09:22 | disposition home or self-care (01) ==
LOC: HO.WFDLDS 09:21
PROVIDERS: Visit Provider Nurse Practitioner Family
DX: Z01.818 Encounter for other preprocedural examination (principal); Z00.00 Encounter for general adult medical examination without abnormal findings; Z78.9 Other specified health status; Z13.1 Encounter for screening for diabetes mellitus; Z13.9 Encounter for screening, unspecified
CPT/HCPCS: 80053; 80061; 80307; 80323; 81003; 82043; 82570; 82607; 82746; 83036; 84443; 84702; 85027; 85610; 85730; 87389

== ENCOUNTER → 2024-08-31 13:38 | Outpatient (REF) | payer OTHER, SELFPAY ==
--- NOTE | 2024-08-31 13:43 | ECG_ITS ---
Test Reason : preop Blood Pressure : / mmHG Vent. Rate : 090 BPM Atrial Rate : 090 BPM P-R Int : 132 ms QRS Dur : 090 ms QT Int : 354 ms P-R-T Axes : 063 076 049 degrees QTc Int : 433 ms Normal sinus rhythm Normal ECG No previous ECGs available Referred By: Alina Hodge Electronically Signed By:CRYSTAL ALANIZ
== END ==
LOC: HO.CARD 13:38
PROVIDERS: PCP Family Medicine; Visit Provider Nurse Practitioner Family
DX: Z01.818 Encounter for other preprocedural examination (principal)
CPT/HCPCS: 93005

== ENCOUNTER → 2024-08-31 13:43 | Outpatient (BNV) | payer OTHER, SELFPAY | PROVIDERS: PCP Family Medicine; Visit Provider Internal Medicine | DX: Z01.810 Encounter for preprocedural cardiovascular examination (principal) | CPT/HCPCS: 93010 ==

== ENCOUNTER 2024-09-11 12:07 | Outpatient (REF) | payer OTHER, SELFPAY ==
[2024-09-11 12:39] LABS: MANUAL DIFF FLAG NO
[2024-09-11 13:25] LABS: Basophils Percent Auto 0.5 % (0-2); Eosinophils Absolute Auto 0.2 X10*3/uL (0.0-0.4); Hematocrit 41.3 % (37.0-47.0); Hemoglobin 13.8 g/dl (12.0-16.0); Imm Gran Abs Auto 0.02 X10*3/uL (0.00-0.03); Imm Gran Pct Auto 0.3 % (0.0-0.4); Lymphocytes Absolute Auto 2.5 X10*3/uL (1.2-4.9); Lymphocytes Percent Auto 33.9 % (20-40); Mean Corpuscular HGB Conc 33.4 g/dl (31.0-35.0); Mean Corpuscular Hemoglobin 28.8 pg (27.0-33.0); Mean Platelet Volume 10.2 fL (9.4-12.3); Monocytes Absolute Auto 0.6 X10*3/uL (0.1-1.2); Monocytes Percent Auto 7.5 % (2-11); Neutrophils Absolute Auto 4.1 x10*3/uL (2.0-8.3); Neutrophils Percent Auto 55.8 % (45-73); Platelet Count 282 X10*3/uL (160-400); White Blood Count 7.4 X10*3/uL (4.8-10.8)
== END 2024-09-11 12:08 | disposition home or self-care (01) ==
LOC: HO.LAB 12:07
PROVIDERS: PCP Family Medicine; Visit Provider Nurse Practitioner Family
DX: Z01.818 Encounter for other preprocedural examination (principal)
CPT/HCPCS: 36415; 85025; 87086

== ENCOUNTER 2024-09-18 07:57 | Outpatient (AMB) | payer OTHER, SELFPAY ==
--- NOTE | 2024-09-18 08:00 | A.OFFVIS_ITS ---
Intake Visit Reasons: New Pt - right shoulder pain Intake Note: Gisela is a 49 year old right hand dominant female who presents today as a new patient for an evaluation of her right shoulder pain. Pt denies any previous Injury,or Surgery to her shoulder. Pt states she has tried PT with some relief. Patient reports ongoing pain for about 1 year. Her pain is worse when she is lifting her arm aver her head. Pt states she started seeing a chiropractor with some relief. Allergies No Known Allergies Allergy (Verified 09/18/24 08:00) HPI HPI New Pt - right shoulder pain: Details: 49-year-old right-hand dominant female who presents in the office today, as a new patient, for an evaluation of right shoulder pain. The patient was seen by her PCP, Alina Sood, on 09/02/24 and reported experiencing persistent right shoulder pain, stiffness and difficulty range of motion. Symptoms are worse at night. She has completed physical therapy for her right shoulder. She was referred to [facility] orthopedics for further evaluation. While in the office today, the patient reports ongoing right shoulder pain for about a year. She experiences worsening pain when she lifts her right upper extremity over her head. She has tried physical therapy and started seeing chiropractors with mild relief. She denies any previous injury or surgery to the right shoulder. [facility] Medical History (Updated 09/18/24 @ 08:18 by Megan Lacy PA-C) Painful arc syndrome of right shoulder Surgical History No pertinent past surgical history Family History Mother No problems noted. Father No problems noted. Other Mental health disorder Social History Housing: House Alcohol intake: current Alcohol intake frequency: a few times a week Patient Tobacco Use Status: Never used Tobacco e-Cigarette/Vaping Use: Never Used Second Hand Smoke Exposure: No service: No Current occupational status: employed Current occupation: [employer] Cognitive needs: No Hearing needs: No Vision needs: Yes (Glasses) Review of Systems Const All systems reviewed & are unremarkable except as noted in HPI and below Physical Exam Const General: cooperative and no acute distress Orientation/consciousness: patient oriented x3 Resp Effort & Inspection: normal respiratory effort and able to speak in complete sentences Cardio Peripheral pulses: Peripheral pulses 2+ throughout Skin General skin exam: no rashes or lesions noted Neuro General: patient oriented x3 Extrem Other: Right shoulder: Normal to inspection. No ecchymosis, erythema, or edema. Full shoulder ROM in all planes. Negative cross-body reach. 4-5 strength with an empty can. Positive lift off. Positive belly press. NVI. Assessment & Plan Assessment & Plan (1) Painful arc syndrome of right shoulder: Code(s): M75.101 - Unspecified rotator cuff tear or rupture of right shoulder, not s pecified as traumatic Category: Medical Plan is a 49-year-old right-hand dominant female who presents in the office today, as a new patient, for an evaluation of right shoulder pain. The patient was seen by her PCP, Alina Sood, on 09/02/24 and reported experiencing persistent right shoulder pain, stiffness and difficulty range of motion. Symptoms are worse at night. She has completed physical therapy for her right shoulder. She was referred to [facility] orthopedics for further evaluation. While in the office today, the patient reports ongoing right shoulder pain for about a year. She experiences worsening pain when she lifts her right upper extremity over her head. She has tried physical therapy and started seeing chiropractors with mild relief. She denies any previous injury or surgery to the right shoulder. An order for an MRI was placed today to further evaluate the integrity of the shoulder and surrounding structures. We discussed the role of cortisone injections; however, she is not interested in the option at this time. She has tried physical therapy and been to chiropractor therapy which did help her slightly but continues to have pain and unable to lift weight. Follow-up will be after obtaining the MRI results, or sooner if needed. X-rays of the right shoulder, obtained on 11/02/23, revealed: No acute findings. Moderate subacromial enthesophyte. Orders: Orders MR shoulder RT wo con Today M75.101 - Unspecified rotator cuff tear or rupture of right shoulder, not specified as traumatic Patient Instructions: Scribed by Jillian Ventura medical office technician, for Megan Lacy PA-C on 09/18/24 at 8:40 am EST. Coding Level of Care Code New Pt Level 4 (90400) Diagnoses Painful arc syndrome of right shoulder M75.101
== END 2024-09-18 08:22 | disposition home or self-care (01) ==
PROVIDERS: PCP Nurse Practitioner Family; Visit Provider Physician Assistant
DX: M75.101 Unspecified rotator cuff tear or rupture of right shoulder, not specified as traumatic (principal)
CPT/HCPCS: 99204

== ENCOUNTER → 2024-09-18 07:57 | Outpatient (BNVA) | payer OTHER, SELFPAY | PROVIDERS: PCP Nurse Practitioner Family; Visit Provider Physician Assistant ==

== ENCOUNTER → 2024-10-07 14:14 | Outpatient (BNV) | payer OTHER, SELFPAY | PROVIDERS: PCP Nurse Practitioner Family; Visit Provider Radiology Diagnostic Radiology | DX: M75.121 Complete rotator cuff tear or rupture of right shoulder, not specified as traumatic (principal) | CPT/HCPCS: 73221 ==

== ENCOUNTER 2024-10-07 14:15 | Outpatient (REF) | payer OTHER, SELFPAY | END 2024-10-07 14:16 | disposition home or self-care (01) | LOC: HO.MRI 14:15 | PROVIDERS: PCP Nurse Practitioner Family; Visit Provider Physician Assistant | DX: M75.101 Unspecified rotator cuff tear or rupture of right shoulder, not specified as traumatic (principal) | CPT/HCPCS: 73221 ==

== ENCOUNTER 2024-11-11 13:35 | Outpatient (AMB) | payer OTHER, SELFPAY ==
--- NOTE | 2024-11-11 13:40 | A.OFFPC_ITS ---
Vital Signs 3 11/11/24 13:43 Height 5 ft 6 in BMI Reason not done Patient refused/unable BP 124/74 Blood Pressure Location Rt brachial Position Sitting Respiration 12 Pulse 97 Pulse Source Pulse Oximeter Temp 98.5 F Temp Source Oral Pulse Oximetry (%) 97 Oxygen Delivery Method Room Air Intake Visit Reasons: drainage removal Intake Note: Patient here for a ultrasound, patient states she cant removed drainage because she still draining. 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 The patient underwent an extended abdominoplasty with liposuction and Burkinan Butt Lift (BBL) on October 14, approximately four weeks ago in [place]. Since surgery, she has had persistent drainage from the KENDRICK drain, specifically noting approximately 50 cc of output daily, with occasional increases to 75 cc. Drainage management has included regular emptying of the drain, particularly around showering, and photographic documentation. The patient reports persistent drainage from the belly button area, described as gooey, and has used hydrogen peroxide and alcohol for cleaning. She describes a balloon-like sensation near the left lower quadrant, for which she is receiving weekly lymphatic massages as recommended by the surgeon. There are no associated fevers or chills, and urination and defecation processes are reported as normal. The patient completed two courses of antibiotics and anticoagulation therapy for ten days postoperatively. She is currently finishing a course of gabapentin. A telehealth assessment with the surgeon has advised maintaining the drain until output is less than 30 cc over 24 hours and considering an ultrasound if the seroma appears indolent. Discussion Notes I discussed the importance of drainage surveillance with the patient, emphasizing the need for continual monitoring until output reduces to under 30 cc per day. I explained that an ultrasound may be necessary to assess for seroma exploration and potential intervention. I advised against continued use of hydrogen peroxide due to potential tissue oxygenation interference and recommended dry, sterile gauze placement for wound care. We discussed considering surgical evaluation should drainage persist or require more invasive management. Patient Instructions - Continue with lymphatic drainage massa ges as scheduled. - Monitor the surgical drainage output c onsistently. - Replace with dry gauze on the umbilica l wound daily, especially after cleaning and before binder application. - Avoid using hydrogen peroxide or alcoh ol for wound cleaning. - Follow up with ultrasound imaging as s cheduled and report to the clinician regarding the results. - Notify of any increase in symptoms suc h as fever, increased drainage, or pain. Plan - Continue postoperative management with current drain in place, monitoring drainage output. - Order a soft tissue ultrasound of the abdomen to evaluate for persistent seroma and determine necessity for intervention. - Provide gauze and instruct the patient in proper wound care techniques to promote healing. - Coordinate with the general surgery gr oup for potential drainage if surgical intervention becomes necessary. - Maintain telehealth support for postop erative follow-up and potential transition back to office-based work pending improvement in symptoms. Patient was informed and verbally consented to the use of an ambient scribe for clinic note documentation during this visit. Exam Awake alert NAD Speaking in full sentences Abd is semifirm, in LLQ is a melon sized area of firmness, not excessively warm to touch. There is some serous drainage from the umbilicus. The surgical incision is well approx. The KENDRICK drain is in place and draining serous drainage. Total time spent caring for the patient today was 45 minutes. This includes time spent before the visit reviewing the chart, time spent during the visit, and time spent after the visit on documentation, reviewing laboratory results, diagnostic imaging, medications, performing a medically necessary evaluation, counseling on diagnoses, care coordination, ordering appropriate tests, ordering appropriate medications, review of tests performed by other providers, reporting test results with the patient, communication with other healthcare providers. [facility] Medical History (Updated 11/11/24 @ 14:14 by SHEREEN Wong-LILIA) Painful arc syndrome of right shoulder Surgical History (Updated 11/11/24 @ 14:14 by SHEREEN Wogn-LILIA) No pertinent past surgical history Family History Mother No problems noted. Father No problems noted. Other Mental health disorder Social History Housing: House Alcohol intake: current Alcohol intake frequency: a few times a week Patient Tobacco Use Status: Never used Tobacco e-Cigarette/Vaping Use: Never Used Second Hand Smoke Exposure: No service: No Current occupational status: employed Current occupation: [employer] Cognitive needs: No Hearing needs: No Vision needs: Yes (Glasses) Questionnaire PHQ-9 Over the last 2 weeks, how often have you been bothered by any of the following problems? 57125 - PHQ-9 Billing: Patient declined-do not bill Source: Developed by Drs. Saravanan Adam, Barb Ariza, José Allen and colleagues, with an educational kori from [employer]. Thrive Questionnaire Date Thrive assessed: 11/11/24 I am a: Patient What is your living situation today?: I have a steady place to live Within the past 12 months, did the food you bought not last and you didn't have the money to get more?: Never true Within the past 12 months, did you worry whether your food would run out before you got money to buy more?: Never true Do you have trouble paying for medicines?: No Do you have trouble getting transportation to medical appointments?: No Do you have trouble paying your heating and electricity bill?: No Do you have trouble taking care of your child, family member or friend?: No Do you have trouble with day-to-day activities such as bathing, preparing meals, shopping, managing finances, etc.?: No Are you currently unemployed and looking for a job?: No Are you interested in more education?: No Please select the resources that you would like help with: None Currently or been in a relationship where the following occur: I choose not to answer THRIVE Score: 0 AUDIT C Alcohol Use Questionnaire (AUDIT-C) 1. How often do you have a drink containing alcohol?: Monthly or less 2. How many drinks containing alcohol do you have on a typical day when you are drinking?: 1 or 2 3. How often do you have six or more drinks on one occasion?: Never Total Score: 1 JUANCHO-7 AMB Questionnaire JUANCHO-7 Date JUANCHO - 7 assessed: 11/11/24 Feeling nervous, anxious, or on edge: 0 = Not at all Not being able to stop or control worryin = Not at all Worrying too much about different things: 0 = Not at all Trouble relaxin = Not at all Being so restless that it is hard to sit still: 0 = Not at all Becoming easily annoyed or irritable: 0 = Not at all Feeling afraid as if something awful might happen: 0 = Not at all Total JUANCHO-7 score (0-4 normal; 5-9 mild; 10-14 moderate; 15-21 severe): 0 Source: Developed by Drs. Saravanan Adam, Barb Ariza, José Allen and colleagues, with an educational kori from [employer]. JUANCHO-7 Assessment Billing JUANCHO-7 Assessment Tool: JUANCHO-7 Assessment 47677 Physical exam (Primary Care) Vital Signs: Last Vital Signs Temp 98.5 F 11/11/24 13:43 Pulse 97 11/11/24 13:43 Resp 12 11/11/24 13:43 BP 124/74 11/11/24 13:43 Pulse Ox 97 11/11/24 13:43 Oxygen Delivery Method Room Air 11/11/24 13:43 Tobacco/Smoking Status: Tobacco use Status Tobacco use date assessed 11/06/23 11/11/24 13:45 Patient Tobacco Use Status Never used Tobacco 11/11/24 13:45 e-Cigarette/Vaping Use Never Used 11/11/24 13:45 Thrive Assessment: Date of Thrive Assessment Date Thrive assessed 11/11/24 11/11/24 13:45 Currently or been in a relationship where the following occur: I choose not to answer Coding Level of Care Code Est Pt Level 5 (33271) Complex EM visit Add On G2211 Diagnoses Abdominal swelling, LLQ R19.04 History of liposuction of abdomen Z98.890 Additional Codes JUANCHO-7 Assessment Billing - JUANCHO-7 Assessment Tool: JUANCHO-7 Assessment 34876 ([id number]) Assessment & Plan Assessment & Plan (1) Abdominal swelling, LLQ: Code(s): R19.04 - Left lower quadrant abdominal swelling, mass and lump Category: Medical (2) History of liposuction of abdomen: Code(s): Z98.890 - Other specified postprocedural states Category: Surgical Plan . Orders: Orders 2 US abdomen limited Today R19.04 - Left lower quadrant abdominal swelling, mass and lump, Z98.890 - Other specified postprocedural states
[2024-11-11 13:43] VITALS: BP 124/74; PULSE 97; RESP 12; TEMP 36.9; O2SAT 97
== END 2024-11-11 14:23 | disposition home or self-care (01) ==
PROVIDERS: PCP Nurse Practitioner Family; Visit Provider Nurse Practitioner Family
DX: R19.04 Left lower quadrant abdominal swelling, mass and lump (principal); Z98.890 Other specified postprocedural states

== ENCOUNTER → 2024-11-11 13:35 | Outpatient (BNVA) | payer OTHER, SELFPAY | PROVIDERS: PCP Nurse Practitioner Family; Visit Provider Nurse Practitioner Family | DX: R19.04 Left lower quadrant abdominal swelling, mass and lump (principal); Z98.890 Other specified postprocedural states | CPT/HCPCS: 96127 ==

== ENCOUNTER → 2024-11-11 16:16 | Outpatient (REF) | payer OTHER, SELFPAY | END | disposition home or self-care (01) | LOC: HO.US 16:16 | PROVIDERS: PCP Family Medicine; Visit Provider Nurse Practitioner Family | DX: R19.04 Left lower quadrant abdominal swelling, mass and lump (principal); Z98.890 Other specified postprocedural states | CPT/HCPCS: 76705 ==

== ENCOUNTER → 2024-11-11 16:21 | Outpatient (BNV) | payer OTHER, SELFPAY | PROVIDERS: PCP Family Medicine; Visit Provider Specialist | DX: R19.04 Left lower quadrant abdominal swelling, mass and lump (principal) | CPT/HCPCS: 76705 ==

== ENCOUNTER 2024-11-30 11:39 | Outpatient (AMB) | payer OTHER, SELFPAY ==
--- NOTE | 2024-11-30 11:42 | MHC.PC.OV ---
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 - Two weeks ago, the patient experienced increased fluid accumulation overnight with symptoms indicating potential infection, including chills and headaches. This has resolved. - Drain site management included compressive devices, with noted improvement in drainage upon their periodic removal. - cont to feel increased swelling in LLQ. US done previously to eval and WNL Exam Awake alert NAD Speaking in full sentences Abd is soft, in LLQ is not excessively warm to touch, nontender, she reports it feels balloonish . No more serous drainage from the umbilicus. The surgical incision is well approx. The KENDRICK drain is in place and draining serosang drainage RLQ. 1 suture clipped and attempt to remove the draine was done. I was only able to pull about 3 inches before meeting resistance. Pt has no pain. At this time, the area was cleansed. The drain was taped into place and [facility] was called for asst in removing. Discussion Notes The plan includes consulting with a surgical group in [place] for assistance in safely removing the drain, considering the presence of potential scar tissue complicating removal. We explored the risks of leaving the drain, the possibility of an infection, which might be confirmed by further diagnostics, and the benefits of having it removed under surgical guidance. The patient verbalized understanding and consent to visit Dr. Mtz for a surgical evaluation and potential drain removal at [facility]. Assessment and Plan 1. Persistent Abdominal Drain: The drain likely has scar tissue complicating its removal and requires surgical intervention, especially given interactions leading to possible infection. Arrangements for surgical consultation and removal at the [facility] have been made, appt today at 1315. 2. Possible Infection: Symptoms reported warrant investigation; however, given the upcoming surgical consultation, empirical treatment was deferred. The surgery team may consider further diagnostics or antibiotics based on their assessment post-removal of the drain. Patient Instructions - Proceed to the [facility] at 1:15 PM for an appointment with Dr. Mtz for evaluation and removal of abdominal drain. - It is safe to drive yourself to the appointment unless you prefer accompaniment. - Monitor for any increased pain, swelling, or fever, and report these symptoms immediately. Consent Consent for referral and potential removal of persistent abdominal drain was obtained verbally after detailed discussion regarding the risks, including potential bleeding and infection, and the possibility that scar tissue may complicate removal. Alternative options, including continued observation, were discussed, and the patient opted for referral to a surgical colleague. Consent was documented and the patient demonstrated understanding of the next steps. Patient was informed and verbally consented to the use of an ambient scribe for clinic note documentation during this visit. Total time spent caring for the patient today was 45 minutes. This includes time spent before the visit reviewing the chart, time spent during the visit, and time spent after the visit on documentation, reviewing laboratory results, diagnostic imaging, medications, performing a medically necessary evaluation, counseling on diagnoses, care coordination, ordering appropriate tests, ordering appropriate medications, review of tests performed by other providers, reporting test results with the patient, communication with other healthcare providers. [facility] Medical History (Updated 11/30/24 @ 12:59 by SHEREEN Wong-LILIA) Painful arc syndrome of right shoulder Surgical History (Updated 11/11/24 @ 14:14 by SHEREEN Wong-LILIA) No pertinent past surgical history Family History Mother No problems noted. Father No problems noted. Other Mental health disorder Social History Housing: House Alcohol intake: current Alcohol intake frequency: a few times a week Patient Tobacco Use Status: Never used Tobacco e-Cigarette/Vaping Use: Never Used Second Hand Smoke Exposure: No service: No Current occupational status: employed Current occupation: [employer] Cognitive needs: No Hearing needs: No Vision needs: Yes (Glasses) Questionnaire PHQ-9 Over the last 2 weeks, how often have you been bothered by any of the following problems? 96593 - PHQ-9 Billing: Patient declined-do not bill Source: Developed by Drs. Saravanan Adam, Barb Ariza, José Allen and colleagues, with an educational kori from [employer]. Thrive Questionnaire Date Thrive assessed: 11/30/24 I am a: Patient What is your living situation today?: I have a steady place to live Within the past 12 months, did the food you bought not last and you didn't have the money to get more?: Never true Within the past 12 months, did you worry whether your food would run out before you got money to buy more?: Never true Do you have trouble paying for medicines?: No Do you have trouble getting transportation to medical appointments?: No Do you have trouble paying your heating and electricity bill?: No Do you have trouble taking care of your child, family member or friend?: No Do you have trouble with day-to-day activities such as bathing, preparing meals, shopping, managing finances, etc.?: No Are you currently unemployed and looking for a job?: No Are you interested in more education?: No THRIVE Score: 0 JUANCHO-7 AMB Questionnaire JUANCHO-7 Date JUANCHO - 7 assessed: 11/11/24 Source: Developed by Drs. Saravanan Adam, Barb Ariza, José Allen and colleagues, with an educational kori from [employer]. Physical exam (Primary Care) Vital Signs: Last Vital Signs Temp 97.1 F 11/30/24 11:47 Pulse 77 11/30/24 11:47 Resp 12 11/30/24 11:47 BP 102/68 11/30/24 11:47 Pulse Ox 98 11/30/24 11:47 Oxygen Delivery Method Room Air 11/30/24 11:47 Tobacco/Smoking Status: Tobacco use Status Tobacco use date assessed 11/30/24 11/30/24 11:51 Patient Tobacco Use Status Never used Tobacco 11/30/24 11:51 e-Cigarette/Vaping Use Never Used 11/30/24 11:51 Thrive Assessment: Date of Thrive Assessment Date Thrive assessed 11/30/24 11/30/24 11:51 Coding Level of Care Code Est Pt Level 5 (93688) Complex EM visit Add On G2211 Diagnoses S/P abdominoplasty Z98.890 Presence of other specified devices Z97.8 Assessment & Plan Assessment & Plan (1) S/P abdominoplasty: Code(s): Z98.890 - Other specified postprocedural states Category: Surgical (2) Presence of other specified devices: Comment: KENDRICK drain Code(s): Z97.8 - Presence of other specified devices Category: Medical Plan . Orders: Referrals General Surgery Referral Z98.890 - Other specified postprocedural states
[2024-11-30 11:47] VITALS: BP 102/68; PULSE 77; RESP 12; TEMP 36.2; O2SAT 98
== END 2024-11-30 16:14 | disposition home or self-care (01) ==
LOC: HO.HMCFM 11:39
PROVIDERS: PCP Nurse Practitioner Family; Visit Provider Nurse Practitioner Family
DX: Z98.890 Other specified postprocedural states (principal); Z97.8 Presence of other specified devices

== ENCOUNTER 2024-11-30 12:56 | Outpatient (AMB) | payer OTHER, SELFPAY ==
--- NOTE | 2024-11-30 12:58 | A.OFFVIS_ITS ---
Vital Signs 11/30/24 12:58 11/30/24 13:05 Height 5 ft 6 in 5 ft 6 in Weight 193 lb BMI 31.1 BP 131/73 Blood Pressure Location Rt brachial Position Sitting Pulse 99 Intake Visit Reasons: KENDRICK drain rt lower quadriant belly Intake Note: Patient refered by pcp Alina Hodge for KENDRICK drain removal. Sol hobbs October 14. Patient c/o: ? seroma on Lt lower abdomen. Feels like rubber. Had lymphatic massage on left side this morning. 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 She has a KENDRICK drain which was left in. It has had scant output and she presents here for drain removal. It was initially attempted by her medical doctor earlier today but they did not feel comfortable doing this an outpatient presents here for drain removal. She has no wound issues or complaints. [facility] Medical History (Updated 11/30/24 @ 12:59 by Alina Hodge, [facility] Painful arc syndrome of right shoulder Surgical History (Updated 11/30/24 @ 13:17 by Tee Mtz MD) No pertinent past surgical history Family History Mother No problems noted. Father No problems noted. Other Mental health disorder Social History Housing: House Alcohol intake: current Alcohol intake frequency: a few times a week Patient Tobacco Use Status: Never used Tobacco e-Cigarette/Vaping Use: Never Used Second Hand Smoke Exposure: No service: No Current occupational status: employed Current occupation: [employer] Cognitive needs: No Hearing needs: No Vision needs: Yes (Glasses) Physical Exam Vital Signs: Last Vital Signs Pulse 99 11/30/24 13:05 BP 131/73 11/30/24 13:05 BMI result Body Mass Index 31.1 GI Other: Abdomen is soft. Incision clean dry and intact. KENDRICK uneventfully removed. Dressing applied. Patient tolerated well. Assessment & Plan Assessment & Plan (1) Encounter for change or removal of drains: Code(s): Z48.03 - Encounter for change or removal of drains Category: Surgical Plan Patient has been given local instructions, and will otherwise follow-up p.r.n.. All questions answered Coding Level of Care Code New Pt Level 4 (29557) Diagnoses Encounter for change or removal of drains Z48.03
[2024-11-30 13:05] VITALS: BP 131/73; PULSE 99; BMI 31.1
== END 2024-11-30 13:14 | disposition home or self-care (01) ==
PROVIDERS: PCP Nurse Practitioner Family; Visit Provider Surgery
DX: Z48.03 Encounter for change or removal of drains (principal)
CPT/HCPCS: 99204

== ENCOUNTER 2024-12-07 09:52 | Outpatient (AMB) | payer OTHER, SELFPAY ==
--- NOTE | 2024-12-07 09:53 | MHC.OFFVIS ---
Intake Visit Reasons: OV - Right Shoulder MRI Review-Discuss Surgery Intake Note: Gisela is a 49 year old right hand dominant female who presents today for an MRI review of her right shoulder. She was last seen with Megan Lacy where she reported ongoing shoulder pain with no injury. Pain increases with over the head movements . Has tried seeing a chiropractor with only mild relief. Allergies No Known Allergies Allergy (Verified 12/07/24 09:59) HPI HPI OV - Right Shoulder MRI Review-Discuss Surgery: Details: Gisela is a 49 year old right hand dominant female who presents today for an MRI review of her right shoulder. She was last seen with Megan Lacy where she reported ongoing shoulder pain with no injury. Pain increases with over the head movements . Has tried seeing a chiropractor with only mild relief. [facility] Medical History (Updated 12/07/24 @ 10:27 by Rishabh Rice MD) Painful arc syndrome of right shoulder Surgical History (Updated 11/30/24 @ 13:17 by Tee Mtz MD) No pertinent past surgical history Family History Mother No problems noted. Father No problems noted. Other Mental health disorder Social History Housing: House Alcohol intake: current Alcohol intake frequency: a few times a week Patient Tobacco Use Status: Never used Tobacco e-Cigarette/Vaping Use: Never Used Second Hand Smoke Exposure: No service: No Current occupational status: employed Current occupation: [employer] Cognitive needs: No Hearing needs: No Vision needs: Yes (Glasses) Physical Exam Extrem Other: Right shoulder with 4/5 empty can. Positive Whyte and Neer. External rotation to 45 degrees. Results Reviewed Results Reviewed: I personally reviewed the MR images. IMPRESSION: 1. Full-thickness rim rent-type tear of the supraspinatus tendon abutting the footplate attachment, measuring approximately 6 x 8 mm. 2. The remainder of the rotator cuff tendons and muscles are intact and normal in signal. 3. Mild hypertrophic arthropathy of the AC joint without outlet stenosis of the supraspinatus. 4. Normal-appearing glenohumeral joint and labrum. 5. See above for details. Assessment & Plan Assessment & Plan (1) Complete rotator cuff tear or rupture of right shoulder, not specified as traumatic: Code(s): M75.121 - Complete rotator cuff tear or rupture of right shoulder, not specified as traumatic Category: Medical Plan: This is a 49-year-old woman with a full-thickness tear of the right rotator cuff. This is a significant tear and I recommend surgery. I discussed with her the timing of surgery. She is pretty adamant that she does not want surgery now. I do think it would be beneficial sooner the better but I can not tell her it would not be possible to do the surgery in 6 months. I think the risks of difficulty with the repair are increased but it does not appear to be significantly retracted tear. She will let me know how she would like to proceed. I discussed the recovery time of surgery and the risks, benefits and alternatives of surgery. She expressed understanding. Coding Level of Care Code Est Pt Level 4 (42707) Diagnoses Complete rotator cuff tear or rupture of right shoulder, not specified as traumatic M75.121
== END 2024-12-07 10:10 | disposition home or self-care (01) ==
PROVIDERS: PCP Nurse Practitioner Family; Visit Provider Orthopaedic Surgery
DX: M75.121 Complete rotator cuff tear or rupture of right shoulder, not specified as traumatic (principal)
CPT/HCPCS: 99214

== ENCOUNTER → 2024-12-07 09:52 | Outpatient (BNVA) | payer OTHER, SELFPAY | PROVIDERS: PCP Nurse Practitioner Family; Visit Provider Orthopaedic Surgery ==

== ENCOUNTER 2025-04-16 14:57 | Outpatient (AMB) | payer OTHER, SELFPAY ==
--- OUTSIDE RECORDS SUMMARY | 2025-04-12 04:40 | XMS_ITS ---
Author Organization [facility] Address [address] [address] [place] [address] Care Team Providers Care Hybrid Tester Name Role Phone BUCK MCGHEE Primary Care Provider Unavailab Sondra Aguilar Unavailable [phone] Allergies No Known Allergies Results Component Value Reference Range Notes [id number] IGP No Culture 30 Plus (Not yet reviewed by provider) Interpretation: Performing Lab:[facility], [address] [place] [address], Phone - [phone], Director - [facility] Notes/Report: No. of containers..01 ThinPrep Vial Dates / Results....01/15/23 NIL, Neg HPV LMP / Prev Treat...[id number] Clinical Information:Vaginal/Cervical, LMP: 03/08 10/31 [id number] DIAGNOSIS: EPITHELIAL CELL ABNORMALITY. LOW GRADE SQUAMOUS INTRAEPITHELIAL LESION (LSIL). Specimen adequacy: Satisfactory for evaluation. Endocervical and/or squamous metaplastic cells (endocervical component) are present. Clinician provided ICD10: Z01.419 Z11.51 Performed by: Iker barakat, School Standards Coach (ASCP) Electronically signed by: Swapnil Noble MD, Pathologist . . Pathologist provided ICD10: R87.612 Note: The Pap smear is a screening test designed to aid in the detection of premalignant and malignant conditions of the uterine cervix. It is not a diagnostic procedure and should not be used as the sole means of detecting cervical cancer. Both false-positive and false-negative reports do occur. . Test Methodology: This liquid based ThinPrep(R) pap test was screened with the use of an image guided system. HPV Aptima Positive Negative This nucleic acid amplification test detects fourteen high-risk HPV types (16,18,31,33,35,39,45,51,52,56 ,58,59,66,68) without differentiation. HPV Genotype Reflex Criteria not met, HPV Genotype not performed. PDF Report Reviewed date:04/14/2025 04:16:28 PM Interpretation: Performing Lab:[facility], [address] [facility], Phone - [phone], [facility] Notes/Report: Clinical Information:Vaginal/Cervical, LMP: 6/2 10/31 [id number] LMP / Prev Treat...[id number] Dates / Results....01/15/23 NIL, Neg HPV No. 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 Yes with Men only Prevention strategies discussed: Other AUDIT-C (Standard) Question Answer Notes Did you have a drink contain ing alcohol in the past year? Yes How often did you have a dri nk containing alcohol in the past year? 2 to 4 times a month (2 points) How many drinks did you have on a typical day when you were drinking in the past year? 1 or 2 drinks (0 point) How often did you have six o r more drinks on one occasion in the past year? Never (0 point) Points 2 Interpretation Negative Tobacco Control (Standard) Question Answer Notes Tobacco use: Nonsmoker Problems Problem Type SNOMED Code ICD Code Onset Dates Problem Status W/U Status Risk Notes Problem Unspecified menopausal and perimenopausal disorder (N95.9) Active confirmed Problem Irregular Menstruation (24323137) Other specified irregular menstruation (N92.5) Active confirmed Vital Signs Temperature 98.1 degrees Fahrenheit 04/12/20 25 Blood pressure systolic 130 mm Hg 04/12/20 25 Blood pressure diastolic 80 mm Hg 025 Height 66 in 04/12/2025 Weight 199 lbs 04/12/2025 BMI 32.12 kg/m2 04/12/2025 Encounters Encounter Location Date Provider Diagnosis [address] [address] 04/12/2025 Sondra Ingramanueva Encounter for gynecological examination (general) (routine) without abnormal findings Z01.419 ; Encounter for screening for human papillomavirus (HPV) Z11.51 ; Encounter for screening mammogram for malignant neoplasm of breast Z12.31 ; Personal history of other diseases of the female genital tract Z87.42 ; Unspecified menopausal and perimenopausal disorder N95.9 and Other specified irregular menstruation N92.5 Assessments Encounter Date Diagnosis (ICD Code) Assessment Notes Treatment Notes Treatment Clinical Notes Section Notes 04/12/2025 Encounter for gynecological examination (general) (routine) without abnormal findings (ICD-10 - Z01.419) PAP TEST WITH HPV TYPING WAS OBTAINED. 04/12/2025 Encounter for screening for human papillomavirus (HPV) (ICD-10 - Z11.51) HPV TYPING WAS ORDERED WITH HER PAP TEST. 04/12/2025 Encounter for screening mammogram for malignant neoplasm of breast (ICD-10 - Z12.31) REGULAR MAMMOGRAMS AND SBE'S WERE RECOMMENDED. 04/12/2025 Personal history of other diseases of the female genital tract (ICD-10 - Z87.42) DISCUSSED PREVIOUS HX OF ABNORMAL PAP TESTS AND COLPOSCOPY AND SUBSEQUENTLY NEGATIVE PAP TESTS. 04/12/2025 Unspecified menopausal and perimenopausal disorder (ICD-10 - N95.9) DISCUSSED PERIMENOPAUSE AND MENOPAUSE AND SYMPTOMS ASSOCIATED WITH THESE. 04/12/2025 Other specified irregular menstruation (ICD-10 - N92.5) DISCUSSED IRREGULAR BLEEDING DURING PERIMENOPAUSE AND NEED FOR FURTHER EVALUATION. RECOMMENDED WE PROCEED WITH HSONO AND EMB AND DISCUSSED THESE PROCEDURES. SHE AGREED. WILL SCHEDULE. MISO/MOTRIN. Plan Of Treatment Medication Medication Name Sig Start Date Stop Date Notes miSOPROStol 200 MCG 2 TABLETS Orally NIG HT BEFORE PROCEDURE; Duration: 1 days 04/12/2025 Treatment Notes Assessment Notes Encounter for gynecological examination (general) (routine) without abnormal findings PAP TEST WITH HPV TYPING WAS OBTAINED. Encounter for screening for human papillomavirus (HPV) HPV TYPING WAS ORDERED WITH HER PAP TEST . Encounter for screening mamm ogram for malignant neoplasm of breast REGULAR MAMMOGRAMS AND SBE'S WERE RECOMMENDED. Personal history of other di seases of the female genital tract DISCUSSED PREVIOUS HX OF ABNORMAL PAP TESTS AND COLPOSCOPY AND SUBSEQUENTLY NEGATIVE PAP TESTS. Unspecified menopausal and p erimenopausal disorder DISCUSSED PERIMENOPAUSE AND MENOPAUSE AN D SYMPTOMS ASSOCIATED WITH THESE. Other specified irregular menstruation DISCUSSED IRREGULAR BLEEDING DURING PERIMENOPAUSE AND NEED FOR FURTHER EVALUATION. RECOMMENDED WE PROCEED WITH HSONO AND EMB AND DISCUSSED THESE PROCEDURES. SHE AGREED. WILL SCHEDULE. MISO/MOTRIN. Pending Test Test Name Order Date MM Digital Mammo Screening 04/12/[id number] IGP No Culture 30 Plus 2024 Next Appt Details Follow Up: 1 Year, Reason: Provider Name:Sondra Jose bennett, 06/10/2025 09:00:00 AM, [address] [facility], [address], [place], [address], Provider Name:Sondra Jose bennett, 04/18/2026 09:40:00 AM, [address], [address], [place], [address], Progress Notes * MALIKALYNNETTEB: 6 (49 yo F)Acc No.[id number]:04/12/2025 PROGRESS NOTES Patient: DEJUAN SWAN Appointment Provider: Nilton Olmstead M.D. :1975 A ge:49 Y S ex:Female Date:04/12/2025 Address:[address] [place], [place] [id number] Pcp:BUCK MCGHEE Subjective: * Chief Complaints: * Annual MANUFACTURING DEVELOPMENT ENGINEER PhysicalAnnual MANUFACTURING DEVELOPMENT ENGINEER Physical 40-49 * HPI: N ew/Follow-up Patient Consult: LARISA WAS LAST HERE IN 2012. SHE HAD HER LAST CHILD ABOUT 11 YEARS AGO AND HAD TO GO TO ANOTHER PRACTICE INVOLVED IN OBSTETRICS. HER MENSES ARE NOW COMING AT 1 TO 3 MONTH INTERVALS. ABOUT 5 MONTHS AGO, SHE BLED FOR 2 WEEKS. STOPPED FOR 2 WEEKS THEN SPOTTED FOR ANOTHER 2 WEEKS. SHE HAS TOLERABLE HOT FLASHES AND IRRITABILITY. SHE IS AND DENIES DYSPAREUNIA. SHE HAS 3 CHILDREN, 2 DAUGHTERS IN THEIR 20'S AND AN 11 YEAR OLD SON. ALL WERE DELIVERED VAGINALLY. SHE UNDERWENT ABDOMINOPLASTY AND REVISION OF BREAST IMPLANTS IN 2015 IN [place]. SHE IS HAPPY WITH THE RESULTS. SHE HAD ABNORMAL PAP TESTS ABOUT 10 YEARS AGO AND UNDERWENT COLPOSCOPY. NO TREATMENTS LIKE LEEP OR CONE BIOPSY WERE PERFORMED. HER SUBSEQUENT PAP TESTS INCLUDING HER LAST ONE IN 2022 HAVE BEEN NEGATIVE AND HPV NEGATIVE. HER LAST MAMMOGRAM DONE IN JUN 2023 SHOWED BREASTS ARE NOT DENSE AND WAS NORMAL. SHE HAS NOT HAD A COLONOSCOPY DONE YET. A nnual: Patient presents for annual exam, ages 40-49. General Health Maintenance: C urrent breast complaints: n o breast pain, mass, discharge, or skin changes U rinary problems: p atient reports no urinary health problems or bowel health problems C alcium intake: t akes adequate calcium via diet and supplementation S ignificant MANUFACTURING DEVELOPMENT ENGINEER problems: n o significant window shade installer symptoms or problems * ROS: g eneral: no c hest pain. n o p alpitations. n o h eadache. n o c ough. n o s hortness of breath. n o f ever. n o u nexplained weight loss. n o n ausea/vomiting. n o c hange in bowel movements. n o blood in stool. n o g enitourinary complaints. n o s kin complaints. ? * Medical History: * Primary Clinician History: G ravida/ Para 3 /3. S exual activity c urrently sexually active. L ast Pap Smear: , NIL, NEG HPV. M ammogram: , Breast Tissue is Almost Entirely Fatty. A bnormal Pap Smear: Y es. L MP and menses . H istory of STD's: n one. B irth Control: n one. M enarche 2 4. * OB History: T otal pregnancies 3 . T otal living children 3 . N VD 3 . * Surgical History: Amira Rolle 10/14/24Breast Implants 2015 * Hospitalization/Major Diagno stic Procedure: S ee Surgical Hx * Family History: M other: , Lung Cancer (Non Small Cell). F ather: alive. P aternal aunt: alive, Breast Cancer, Ovarian Cancer, Colon Cancer. * Social History: T obacco Use: T obacco Control (Standard) T obacco use: N onsmoker S exual History: D etails of Sexual History A re you sexually active? Y es Sexual History H ad sex in the past 12 months (vaginal, oral, or anal)? Y es w ith M en only P revention strategies discussed: O ther D rugs/Alcohol: D rugs H ave you used drugs other than those for medical reasons in the past 12 months? N o M iscellaneous: C hildren: yes, 3. Exercise: yes, walking. Home smoke detector use: yes. Living with: spouse. Marital status: . Natural support system: yes. 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 Sexually active: yes, monogamous relationship. D rug/Alcohol: A DESI-C (Standard) D id you have a drink containing alcohol in the past year? Y es H ow often did you have a drink containing alcohol in the past year? 2 to 4 times a month (2 points) H ow many drinks did you have on a typical day when you were drinking in the past year? 1 or 2 drinks (0 point) H ow often did you have six or more drinks on one occasion in the past year? N ever (0 point) P oints 2 I nterpretation N egative * Medications: D iscontinuedPrenatal Vitamins 90 1 ORAL daily , Notes to Pharmacist: Dalton- MJMedication List reviewed and reconciled with the patientDiscontinued Vitamins 90 1 ORAL daily , Notes to Pharmacist: Dalton-MJMedication List reviewed and reconciled with the patient * Allergies: N .K.D.A.no[Allergies Verified] Objective: * Vitals: H t: 66 in, Wt:199lbs, BMI:32.12Index, BP:130/80mm Hg, Temp:98.1F. * Examination: G eneral Exam: CONSTITUTIONAL: G eneral Appearance: a lert, in no acute distress, normal, well nourished NECK/THYROID: I nspection/Palpation: n ormal T hyroid: n ormal size and shape RESPIRATORY: A uscultation: clear to auscultation bilaterally, Respiratory Effort: normal. CARDIOVASCULAR: A uscultation: regular rate and rhythm.? BREAST, Right: I nspection/Palpation: n o discharge, no masses present, no nipple retraction, no skin changes, no skin dimpling, no tenderness, no lymphadenopathy, no axillary mass, no axillary tenderness BREAST, Left: I nspection/Palpation: n o discharge, no masses present, no nipple retraction, no skin changes, no skin dimpling, no tenderness, no lymphadenopathy, no axillary mass, no axillary tenderness GASTROINTESTINAL: A bdomen: n o masses, nontender, nondistended L iver and Spleen: n ormal H ernias: n o hernias present, no inguinal adenopathy MUSCULOSKELETAL: I nspection/Palpation: n o clubbing, cyanosis, or edema SKIN: S kin: n ormal NEURO/PSYCH: O rientation: t duc , place, person M ood/Affect: n ormal G enitourinary: EXTERNAL GENITALIA: E xternal Genitalia: n ormal, no lesions VAGINA: V agina: n ormal appearance, no abnormal discharge, no lesions BLADDER: B ladder: n o mass, nontender URETHRA: U rethra: n o erythema or lesions present CERVIX: C ervix: n o lesions, nontender UTERUS: U terus: n ontender, normal contour, normal mobility, normal size ADNEXA: A dnexa: n o masses, no tenderness ANUS AND PERINEUM: A nus/Perineum: v isually normal Assessment: * Assessment: 1. E ncounter for gynecological examination (general) (routine) without abnormal findings - Z01.419 2 . E ncounter for screening for human papillomavirus (HPV) - Z11.51 & #160; 3 . E ncounter for screening mammogram for malignant neoplasm of breast - Z12.31 ? 4 . P ersonal history of other diseases of the female genital tract - Z87.42 ? 5 . U nspecified menopausal and perimenopausal disorder - N95.9 6 . O ther specified irregular menstruation - N92.5 Plan: * Treatment: Notes: PAP TEST WITH HPV TYPING WAS OBTAINED.??2.?Encounter for screening for human papillomavirus (HPV)? Notes: HPV TYPING WAS ORDERED WITH HER PAP TEST.??3.?Encounter for screening mammogram for malignant neoplasm of breast?Imaging: MM Digital Mammo Screening Notes: REGULAR MAMMOGRAMS AND SBE'S WERE RECOMMENDED.??4.?Personal history of other diseases of the female genital tract? Notes: DISCUSSED PREVIOUS HX OF ABNORMAL PAP TESTS AND COLPOSCOPY AND SUBSEQUENTLY NEGATIVE PAP TESTS.??5.?Unspecified menopausal and perimenopausal disorder? Notes: DISCUSSED PERIMENOPAUSE AND MENOPAUSE AND SYMPTOMS ASSOCIATED WITH THESE. ??6.?Other specified irregular menstruation? Start miSOPROStol Tablet, 200 MCG, 2 TABLETS, Orally, NIGHT BEFORE PROCEDURE, 1 days, 2 Tablet, Refills 0.?? Notes: DISCUSSED IRREGULAR BLEEDING DURING PERIMENOPAUSE AND NEED FOR FURTHER EVALUATION. RECOMMENDED WE PROCEED WITH HSONO AND EMB AND DISCUSSED THESE PROCEDURES. SHE AGREED. WILL SCHEDULE. MISO/MOTRIN.?? * Procedure Codes: * Preventive Medicine: YOUR PREVENTIVE WELLNESS PLAN: O steoporosis prevention C alcium, D, strength training. B reast Cancer Screening (Mammogram): a nnually. C ervical Cancer Screening (Pap Smear): q 3 years with HPV screen. C olorectal Cancer Screening: q 10 years. * Follow Up: 1 Year * Images: Billing Information: * Visit Code: 05243 Preventive Care New Pt. Age 40-64. 46733 Preventive Care Est Pt. Age 40-64. * Procedure Codes: * Sign off status: Completed true * Appointment Provider: Nilton Olmstead M.D. Date: 04/12/2025 Generated for Sima henriquez/Shanelle/Nicolitting on: 04/16/2025 03:00 PM EDT History and Physical Notes * HPI (History of Present Illness) Category Sub-Category Detail Notes Category Not es New/Follow-up Patient Consult PAT WAS LAST HERE IN 2012. SHE HAD HER LAST CHILD ABOUT 11 YEARS AGO AND HAD TO GO TO ANOTHER PRACTICE INVOLVED IN OBSTETRICS. HER MENSES ARE NOW COMING AT 1 TO 3 MONTH INTERVALS. ABOUT 5 MONTHS AGO, SHE BLED FOR 2 WEEKS. STOPPED FOR 2 WEEKS THEN SPOTTED FOR ANOTHER 2 WEEKS. SHE HAS TOLERABLE HOT FLASHES AND IRRITABILITY. SHE IS AND DENIES DYSPAREUNIA. SHE HAS 3 CHILDREN, 2 DAUGHTERS IN THEIR 20'S AND AN 11 YEAR OLD SON. ALL WERE DELIVERED VAGINALLY. SHE UNDERWENT ABDOMINOPLASTY AND REVISION OF BREAST IMPLANTS IN 2016 IN [place]. SHE IS HAPPY WITH THE RESULTS. SHE HAD ABNORMAL PAP TESTS ABOUT 10 YEARS AGO AND UNDERWENT COLPOSCOPY. NO TREATMENTS LIKE LEEP OR CONE BIOPSY WERE PERFORMED. HER SUBSEQUENT PAP TESTS INCLUDING HER LAST ONE IN 2022 HAVE BEEN NEGATIVE AND HPV NEGATIVE. HER LAST MAMMOGRAM DONE IN JUN 2023 SHOWED BREASTS ARE NOT DENSE AND WAS NORMAL. SHE HAS NOT HAD A COLONOSCOPY DONE YET. Annual General Health Maintenance: Current breast complaints:: no breast pain, mass, discharge, or skin changes Urinary problems:: patient r eports no urinary health problems or bowel health problems Calcium intake:: takes adequ ate calcium via diet and supplementation Significant MANUFACTURING DEVELOPMENT ENGINEER problems:: n o significant window shade installer symptoms or problems Examination Category Sub-Category Detail Notes Category Not es General Exam CONSTITUTIONAL: General Appearan ce:: alert, in no acute distress, normal, well nourished NECK/THYROID: Thyroid:: normal size and shape Inspection/Palpation:: normal RESPIRATORY: Auscultation: clear to auscultation bilaterally, Respiratory Effort: normal CARDIOVASCULAR: Auscultation: regula r rate and rhythm GASTROINTESTINAL: Hernias:: no hernias present, no inguinal adenopathy Liver and Spleen:: normal Abdomen:: no masses, nontender, nondiste nded MUSCULOSKELETAL: Inspection/Palpation:: no clubb ing, cyanosis, or edema SKIN: Skin:: normal NEURO/PSYCH: Mood/Affect:: normal Orientation:: time , place, person BREAST, Right: Inspection/Palpation :: no discharge, no masses present, no nipple retraction, no skin changes, no skin dimpling, no tenderness, no lymphadenopathy, no axillary mass, no axillary tenderness BREAST, Left: Inspection/Palpation :: no discharge, no masses present, no nipple retraction, no skin changes, no skin dimpling, no tenderness, no lymphadenopathy, no axillary mass, no axillary tenderness Genitourinary EXTERNAL GENITALIA: External Genitalia:: nor mal, no lesions VAGINA: Vagina:: normal appearance, no a bnormal discharge, no lesions BLADDER: Bladder:: no mass, nontender URETHRA: Urethra:: no erythema or lesions present CERVIX: Cervix:: no lesions, nontender UTERUS: Uterus:: nontender, normal conto ur, normal mobility, normal size ADNEXA: Adnexa:: no masses, no tendernes s ANUS AND PERINEUM: Anus/Perineum:: visually norm al
--- NOTE | 2025-04-16 15:12 | A.OFFPC_ITS ---
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 Geologic Technician Required: No Allergies No Known Allergies Allergy (Verified 04/16/25 16:34) Medication List - Last Reconciled 04/16/25 by KALI Wong No Known Home Meds Tobacco use date assessed: 04/16/25 Dental Screening Dental Screen Date: 04/16/25 Did you have a dental visit in the last 12 months?: Yes Did you have a dental problem in the last 6 months where you did not have access to dental care?: No Was dental information given to patient?: Patient has dentist HPI HPI Comments History of Present Illness Details History of Present Illness - The patient is a 49-year-old female pr esenting with an enlarged uterus and abnormal uterine bleeding. 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 - History of menstrual irregularities wo rsening over the past few years. - Ultrasound scheduled for June 10 , wonders if i can order something sooner for her - After discussing further, it sounds li ke she has a hysteroscopy scheduled and not a transvag/abd US. - Concerns about waiting time and clarit y of diagnostic steps expressed. Assessment and Plan 1. Enlarged Uterus/Abnormal Uterine Blee ding - Possible menopause or fibroids. - Hysteroscopy planned for further evalu ation. - Patient to wait for specialized diagno stic procedure. - Patient reassured about the procedure. Telehealth Attestation The information documented is accurate and based on a telehealth consultation conducted via phone. The patient has been explained that this is an interactive (audio/video) telehealth encounter and what that consists of. The patient understands and wishes to proceed. [employer] platform was used. Total time spent caring for the patient today was 15 minutes. This includes time spent before the visit reviewing the chart, time spent during the visit, and time spent after the visit on documentation, reviewing laboratory results, diagnostic imaging, medications, performing a medically necessary evaluation, counseling on diagnoses, care coordination, ordering appropriate tests, ordering appropriate medications, review of tests performed by other providers, reporting test results with the patient, communication with other healthcare providers. [facility] Medical History (Updated 07/11/25 @ 16:36 by Alina Hodge, [facility]) Painful arc syndrome of right shoulder Surgical History (Updated 11/30/24 @ 13:17 by Tee Mtz MD) No pertinent past surgical history Family History Mother No problems noted. Father No problems noted. Other Mental health disorder Social History Housing: House Alcohol intake: current Alcohol intake frequency: a few times a week Patient Tobacco Use Status: Never used Tobacco e-Cigarette/Vaping Use: Never Used Second Hand Smoke Exposure: No service: No Current occupational status: employed Current occupation: [employer] Cognitive needs: No Hearing needs: No Vision needs: Yes (Glasses) Questionnaire Thrive Questionnaire Date Thrive assessed: 11/11/24 JUANCHO-7 AMB Questionnaire JUANCHO-7 Date JUANCHO - 7 assessed: 11/11/24 Source: Developed by Drs. Saravanan Adam, Barb Ariza, José Allen and colleagues, with an educational kori from [employer]. Physical exam (Primary Care) Tobacco/Smoking Status: Tobacco use Status Tobacco use date assessed 04/16/25 04/16/25 15:17 Patient Tobacco Use Status Never used Tobacco 04/16/25 15:15 e-Cigarette/Vaping Use Never Used 04/16/25 15:15 Thrive Assessment: Date of Thrive Assessment Date Thrive assessed 11/11/24 04/16/25 15:15 Telehealth Telehealth Telehealth Platform: [facility] Location of provider rendering services: practice address Location of patient: address on file Patient Identification confirmed using: Name, : Yes Telehealth method: voice only Patient verbally consented to treatment: Yes Patient verbally consented to billing insurance company: Yes Patient informed of any privacy concerns related to visit: Yes Minutes spent on Phone/Video with Pt.: 8 Coding Level of Care Code Tele Est Pt Level 2 (48246) Complex EM visit Add On G2211 Diagnoses Abnormal uterine bleeding N93.9 Assessment & Plan Assessment & Plan (1) Abnormal uterine bleeding: Code(s): N93.9 - Abnormal uterine and vaginal bleeding, unspecified Category: Medical Plan .
== END 2025-04-16 16:44 | disposition home or self-care (01) ==
LOC: HO.HMCFM 14:57
PROVIDERS: PCP Nurse Practitioner Family; Visit Provider Nurse Practitioner Family
DX: N93.9 Abnormal uterine and vaginal bleeding, unspecified (principal)

== ENCOUNTER 2025-08-05 14:15 | Outpatient (AMB) | payer OTHER, SELFPAY ==
--- NOTE | 2025-08-05 14:41 | MHC.OFFVIS ---
Vital Signs 08/05/25 14:42 Height 5 ft 6 in Weight 193 lb BMI 31.1 BP 137/84 Blood Pressure Location Lt brachial Position Sitting Pulse 80 Pulse Source Pulse Oximeter Handedness Right Intake Visit Reasons: Preop RT RTC repair 08/11/25 NE Intake Note: Gisela is a 50 year old right hand dominant female who presents today for a pre operative appointment 08/11/25 NE. Patient was given the pain management forms and the pendulum exercises. Allergies No Known Allergies Allergy (Verified 08/05/25 14:42) HPI HPI Preop RT RTC repair 08/11/25 NE: Details: Ms. Baires is a 50-year-old female who presents to the office today for her preoperative history and physical examination pending right shoulder rotator cuff repair tentatively scheduled for 08/11/[address] Rice. [facility] Medical History (Updated 04/16/25 @ 16:36 by Alina Hodge, [facility]) Painful arc syndrome of right shoulder Surgical History (Updated 11/30/24 @ 13:17 by Tee Mtz MD) No pertinent past surgical history Family History Mother No problems noted. Father No problems noted. 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 Positive Whyte and Neer. External rotation to 45 degrees. Psych Appearance: grossly normal Mental Status: mental status grossly normal Attitude: cooperative Assessment & Plan Assessment & Plan (1) Complete rotator cuff tear or rupture of right shoulder, not specified as traumatic: Code(s): M75.121 - Complete rotator cuff tear or rupture of right shoulder, not specified as traumatic Category: Medical Plan I discussed the proposed right shoulder arthroscopy procedure for rotator cuff repair in detail and that the goal of the surgery is to relieve pain and improve shoulder function, strength and attempt to prevent further tendon damage or muscle degeneration.? The procedure is typically done arthroscopically, although in some cases an open incision may be needed (biceps tenodesis).? The torn tendons are sutured and reattached to the bone using anchors.? Other necessary procedures (ie.)? Subacromial decompression and debridement may be performed based on intraoperative findings.? We discussed the risks, benefits and alternatives to the surgery as well as the rehabilitation course.? The risks; which include, but are not limited to infection, bleeding, nerve injury, ongoing pain, swelling, and stiffness, perioperative risk of injury to bones and soft tissues, and blood clots.? Specific risks to the shoulder include stiffness, frozen shoulder, re-tear of the repair, incomplete pain relief, shoulder weakness, delayed healing or nonhealing of the tendon and hardware (anchor) irritation.?? Expected Benefits: Improve shoulder strength and function. Reduce or eliminate pain, restore motion for daily activities and work. Prevention of tear enlargement and/or further muscle degeneration. Improve quality of life and allow return to sports or hobbies.? Alternatives: Continued physical therapy, NSAIDs, cortisone injections and/or activity modifications.? The patient is aware these may manage symptoms but will not repair the torn tendon. Postoperative recovery was also discussed with the patient.? The patient will remain in the sling for 6 weeks postoperatively and attend physical therapy for several months.? The patient will be unable to drive for 6 weeks while he is in the sling and/or while taking narcotic pain medication.? Full recovery may take 6-12 months.? Adherence to the rehabilitation plan is essential for optimal outcome.? A physical therapy order has been placed while in the office today with instruction given to the patient to contact physical therapy to make an appointment for one week status post surgery.? Additionally, the patient was fit for an abduction sling while in the office today off the shelf.? This will be brought the day of surgery. Post operative medications were sent to the [facility] pharmacy while in the office today with instructions for the pharmacy to bring to the PACU on the date of surgery.? Oxycodone 5mg PO Q4-6H PRN, quantity 42 tabs for 7 days and morphine ER 15 mg (MS Contin) PO Q12H PRN, quantity 6 tabs for 3 days.? ? The patient has had the opportunity to ask all questions and was satisfied with all answers.? The patient demonstrates understanding of the risks, benefits and alternatives.? The patient understands that there are no guarantees that can be made regarding the outcome. With the patient's understanding they have consented to move forward with the administration of anesthesia, right shoulder arthroscopy rotator cuff repair as well as any additional procedures deemed necessary during surgery. The surgical consent form was given to the patient for additional review and signed by the patient with myself as a witness.? Coding Level of Care Code Global (37349) Diagnoses Complete rotator cuff tear or rupture of right shoulder, not specified as traumatic M75.121
[2025-08-05 14:42] VITALS: BP 137/84; PULSE 80; BMI 31.1
--- OUTSIDE RECORDS SUMMARY | 2025-08-05 17:17 | XMS_ITS | Patient Health Record ---
Author Organization [facility] Address [address] [place] [address] [address] [place] [address] Care Team Providers Care Vice President Lending Name Role Phone BUCK MCGHEE Primary Care Provider Unavailab Sondra Aguilar Unavailable [phone] Allergies No Known Allergies Results Component Value Reference Range Notes [id number] IGP No Culture 30 Plus Reviewed date:05/04/2025 11:56:28 AM Interpretation: Performing Lab:[facility], [address] [place] [address], Phone - [phone], Director - [facility] Notes/Report: Clinical Information:Vaginal/Cervical, LMP: 6/2 10/31 [id number] LMP / Prev Treat...[id number] Dates / Results....01/15/23 NIL, Neg HPV No. of containers..01 ThinPrep Vial DIAGNOSIS: EPITHELIAL CELL ABNORMALITY. LOW GRADE SQUAMOUS INTRAEPITHELIAL LESION (LSIL). Specimen adequacy: Satisfactory for evaluation. Endocervical and/or squamous metaplastic cells (endocervical component) are present. Clinician provided ICD10: Z01.419 Z11.51 Performed by: Iker barakat, Water Purifier Operator (ASCP) Electronically signed by: Swapnil Noble [...] Report Reviewed date:04/14/2025 04:16:28 PM Interpretation: Performing Lab:[facility], [address] [place] [address], Phone - [phone], Director - [facility] Notes/Report: Clinical Information:Vaginal/Cervical, LMP: 6/2 10/31 [id number] LMP / Prev Treat...[id number] Dates / Results....01/15/23 NIL, Neg HPV No. of containers..01 ThinPrep Vial Test, Urine Reviewed date:05/17/2025 09:26:55 AM Interpretation: Performing Lab: Notes/Report: Test, Urine Negative SURGICAL PATHOLOGY Reviewed date:05/20/2025 05:53:55 PM Interpretation: Performing Lab:Testing performed or reported by [facility], a Service of [facility], [address] [place] [address] Prudencio Miller MD, Power Shovel Operator Helper [facility]# [id number] Notes/Report: Patient Name: DEJUAN DALY Lab Patient : 1975 (Age: 49) Collection Date: 05/17/2025 Accession Date: 05/17/2025 Sign Out Date: 05/20/2025 Tissue Source: 1:ECC 2:CX BX 4:00 3:CX BX 12:00 Final Diagnosis: 1. Endocervix, curettage: - Mucus and scant endocervical tissue fragments (see note). Note: The scant quantity of tissue received may not be site safety representative of the endocervix. 2. Cervix, 4 o'clock, biopsy: - Squamous mucosa, negative for squamous intraepithelial lesion. - Transformation zone mucosa is not represented. 3. Cervix, 12 o'clock, biopsy: - Squamous mucosa, negative for squamous intraepithelial lesion. - Transformation zone mucosa is not represented. Primary Pathologist:Gavin Valencia M.D. electronically signed out by: Gavin Valencia M.D. / [facility] Clinical History: 49-year-old female, cervical high risk [...] specimen processing and staining is performed at [facility], [address] [place] [address] (CLIA#[id number]). Its performance characteristics determined by [facility]. Torie Murray M.D. Power Shovel Operator Helper of Surgical Pathology, Carloz Kaur M.D. Power Shovel Operator Helper Cyt[facility] Phone #: [phone], On-Call Pathologist: [id number] Test, Urine Reviewed date:06/10/2025 04:43:41 PM Interpretation: Performing Lab: Notes/Report: Test, Urine negative Reason For Referral No Information Medications Medication [...] test positive, high risk on vaginal specimen ([id number]) Cervical high risk human papillomavirus (HPV) DNA test positive (R87.810) Active confirmed Problem Irregular Menstruation (65235729) Other specified irregular menstruation (N92.5) Active confirmed Problem Abnormal uterine bleeding (76872685279138) Abnormal uterine and vaginal bleeding, unspecified (N93.9) Active confirmed Problem Unspecified menopausal and perimenopausal disorder (N95.9) Active confirmed Problem care (262290133) Supervision of other normal (V22.1) Active confirmed Diag Problem Gynecological examination normal (089925991633168) Routine gynecological examination (V72.31) Active confirmed Major Vital Signs Temperature 98.1 degrees Fahrenheit 05/17/2025 Blood pressure diastolic 76 mm Hg 05/17/2025 Height 66 in 05/17/2025 Blood pressure systolic 124 mm Hg 05/17/2025 Weight 199 lbs 05/17/2025 BMI 32.12 kg/m2 05/17/2025 Encounters Encounter Location Date Provider Diagnosis [place] [address] [address] [address] 04/12/2025 Sondra Olmstead Encounter for gynecological examination (general) (routine) without abnormal findings Z01.419 ; Encounter for screening for human papillomavirus (HPV) Z11.51 ; Encounter for screening mammogram for malignant neoplasm of breast Z12.31 ; Personal history of other diseases of the female genital tract Z87.42 ; Unspecified menopausal and perimenopausal disorder N95.9 and Other specified irregular menstruation N92.5 [place] [address] [address] 05/17/2025 Sondra Olmstead Cervical high risk human papillomavirus (HPV) DNA test positive R87.810 and Low grade squamous intraepithelial lesion on cytologic smear of cervix (LGSIL) R87.612 [place] [address] [address] [place] [address] 06/10/2025 Sondra Olmstead Abnormal uterine and vaginal bleeding, unspecified N93.9 [facility] [address] [facility] [address] [place] [address] 05/21/2025 Sondra Olmstead Assessments Encounter Date Diagnosis [...] Provider Name:Sondra bennett, 11/16/2025 10:00:00 AM, [address], [address], [place], [address], Provider Name:Sondra bennett, 04/18/2026 09:40:00 AM, [address], [address], [place], [address], Insurance Providers Payer Name Payer Address Payer Phone Subscriber Number Group Number Insured Name Patient Relationship to Insured Coverage Start Date Coverage End Date [facility] [address] [place] [address] [phone] [id number] DEJUAN DALY Self - patient is [...]
== END 2025-08-05 15:20 | disposition home or self-care (01) ==
LOC: HO.HOS 14:16
PROVIDERS: PCP Family Medicine; Visit Provider Physician Assistant
DX: M75.121 Complete rotator cuff tear or rupture of right shoulder, not specified as traumatic (principal)
CPT/HCPCS: 99024

== ENCOUNTER 2025-08-11 06:54 | Day surgery (SDC) | payer OTHER, SELFPAY ==
--- OUTSIDE RECORDS SUMMARY | 2025-07-13 13:47 | XMS_ITS | Patient Health Record ---
Author Organization [employer] [facility] Address [address] [place] [address] Care Team Providers Care Pmo Lead Name Role Phone BUCK MCGHEE Primary Care Provider Unavailab Sondra Aguilar Unavailable [phone] Allergies No Known Allergies Results Component Value Reference Range Notes Test, Urine Reviewed date:06/10/2025 04:43:41 PM Interpretation: Performing Lab: Notes/Report: Test, Urine negative [id number] IGP No Culture 30 Plus Reviewed date:05/04/2025 11:56:28 AM Interpretation: Performing Lab:[facility], [address] [place] [address], Phone - [phone], Director - [facility] Notes/Report: Clinical Information:Vaginal/Cervical, LMP: 6/2 10/31 [id number] LMP / Prev Treat...[id number] Dates / Results....01/15/23 NIL, Neg HPV No. of containers..01 ThinPrep Vial DIAGNOSIS: EPITHELIAL CELL ABNORMALITY. LOW GRADE SQUAMOUS INTRAEPITHELIAL LESION (LSIL). Specimen adequacy: Satisfactory for evaluation. Endocervical and/or squamous metaplastic cells (endocervical component) are present. Clinician provided ICD10: Z01.419 Z11.51 Performed by: Iker barakat, Auxiliary Operator (ASCP) Electronically signed by: Swapnil Noble MD, [...] amplification test detects fourteen high-risk HPV types (16,18,31,33,35,39,45,51, 52,56,58,59,66,68) without differentiation. HPV Genotype Reflex Criteria not met, HPV Genotype not performed. PDF Report Reviewed date:04/14/2025 04:16:28 PM Interpretation: Performing Lab:[facility], [address] [place] [address], Phone - [phone], Director - [facility] Notes/Report: Clinical Information:Vaginal/Cervical, LMP: 03/08 10/31 [id number] LMP / Prev Treat...[id number] Dates / Results....01/15/23 NIL, Neg HPV No. of containers..01 ThinPrep Vial Test, Urine Reviewed date:05/17/2025 09:26:55 AM Interpretation: Performing Lab: Notes/Report: Test, Urine Negative SURGICAL PATHOLOGY Reviewed date:05/20/2025 05:53:55 PM Interpretation: Performing Lab:Testing performed or reported by [facility], a Service of [facility], [address] [place] [address] Prudencio Miller MD, Division Field Inspector RISSA# [id number] Notes/Report: Patient Name: DEJUAN DALY Lab Patient : [id number] (Age: 49) Collection Date: 05/17/2025 Accession Date: 05/17/2025 Sign Out Date: 05/20/2025 Tissue Source: 1:ECC 2:CX BX 4:00 3:CX BX 12:00 Final Diagnosis: 1. Endocervix, curettage: - Mucus and scant endocervical tissue fragments (see note). Note: The scant quantity of tissue received may not be medical service representative of the endocervix. 2. Cervix, 4 o'clock, biopsy: - Squamous mucosa, negative for squamous intraepithelial lesion. - Transformation zone mucosa is not represented. 3. Cervix, 12 o'clock, biopsy: - Squamous mucosa, negative for squamous intraepithelial lesion. - Transformation zone mucosa is not represented. Primary Pathologist:Gavin Valencia M.D. electronically signed out by: Gavin Valencia M.D. / [facility] Clinical History: 49-year-old female, cervical high risk HPV DNA test positive, LGSIL Gross Description: Part 1. Labeled ECC . Received in formalin is a biopsy brush. Teased from the brush and filtered from the formalin is a 1.0 x 1.0 x 0.2 cm aggregate of blood clot which is submitted in toto in 1 cassette, multiple pieces, x 2. (KD)* Part 2. Labeled cervical biopsy, 4:00 . Received in formalin is a 0.4 x 0.3 x 0.3 cm soft bennett tissue fragment which is submitted in toto in 1 cassette, 1 piece, x 2. (KD)* Part 3. Labeled cervical biopsy, 12:00 . Received in formalin is a 0.2 x 0.2 x 0.2 cm soft bennett tissue fragment which is submitted in toto in 1 cassette, 1 piece, x 2. (KD)* As of December 14, 2023, the specimen processing and staining is performed at [facility], [address] [place] [address] (CLIA#[id number]). Its performance characteristics determined by [facility]. Torie Murray M.D. Division Field Inspector of Surgical Pathology, Carloz Kaur M.D. Division Field Inspector Cytopathology Phone #: [phone], On-Call Pathologist: [phone] Reason For Referral No Information Medications Medication SIG (Take, Route, Frequency, Duration) Notes Start Date End Date Status miSOPROStol 200 MCG 2 TABLETS Orally NIG HT BEFORE PROCEDURE; Duration: 1 days For HSONO on 06/10/25 04/12/2025 Active Social History Tobacco Use: Social History Observation [...] Problem Status W/U Status Risk Notes Problem Human papilloma virus deoxyribonucleic acid test positive, high risk on vaginal specimen (249866626676958) Cervical high risk human papillomavirus (HPV) DNA test positive (R87.810) Active confirmed Problem Irregular Menstruation (38004615) Other specified irregular menstruation (N92.5) Active confirmed Problem Abnormal uterine bleeding (98235208042210) Abnormal uterine and vaginal bleeding, unspecified (N93.9) Active confirmed Problem Unspecified menopausal and perimenopausal disorder (N95.9) Active confirmed Problem care (502200290) Supervision of other normal (V22.1) Active confirmed Diag Problem Gynecological examination normal (413167698322928) Routine gynecological examination (V72.31) Active confirmed Major Vital Signs Temperature 98.1 degrees Fahrenheit 05/17/2025 Blood pressure diastolic 76 mm Hg 05/17/2025 Height 66 in 05/17/2025 Blood pressure systolic 124 mm Hg 05/17/2025 Weight 199 lbs 05/17/2025 BMI 32.12 kg/m2 05/17/2025 Encounters Encounter Location Date Provider Diagnosis [place] [address] [address] 04/12/2025 Sondra Olmstead Encounter for gynecological examination (general) (routine) without abnormal findings Z01.419 ; Encounter for screening for human papillomavirus (HPV) Z11.51 ; Encounter for screening mammogram for malignant neoplasm of breast Z12.31 ; Personal history of other diseases of the female genital tract Z87.42 ; Unspecified menopausal and perimenopausal disorder N95.9 and Other specified irregular menstruation N92.5 [place] [address] [address] 05/17/2025 Sondra Olmstead Cervical high risk human papillomavirus (HPV) DNA test positive R87.810 and Low grade squamous intraepithelial lesion on cytologic smear of cervix (LGSIL) R87.612 [place] [address] [address] [place] [address] 06/10/2025 Sondra Olmstead Abnormal uterine and vaginal bleeding, unspecified N93.9 [employer] [address] [place] [address] 05/21/2025 Sondra Olmstead Assessments Encounter Date Diagnosis (ICD Code) Assessment Notes Treatment Notes Treatment Clinical Notes Section Notes 04/12/2025 Encounter for gynecological examination (general) (routine) without abnormal findings (ICD-10 - Z01.419) PAP TEST WITH HPV TYPING WAS OBTAINED. 05/17/2025 Cervical high risk human papillomavirus (HPV) DNA test positive (ICD-10 - R87.810) DISCUSSED IMPLICATIONS OF POSITIVE HR HPV. 06/10/2025 Abnormal uterine and vaginal bleeding, unspecified (ICD-10 - N93.9) DISCUSSED HER PREVIOUS HX OF ABNORMAL BLEEDING AND NEED FOR HSONO AND POSSIBLE EMB PROCEDURES WERE DISCUSSED. AFTER HSONO, NORMAL FINDINGS WERE DISCUSSED AND PAT WAS REASSURED. 05/17/2025 Low grade squamous intraepithelial lesion on cytologic smear of cervix (LGSIL) (ICD-10 - R87.612) DISCUSSED PAP TEST RESULTS AND IMPLICATIONS OF LSIL AND POSITIVE HR HPV. DISCUSSED COLPOSCOPY PROCEDURE AND WHAT THIS ENTAILS. DISCUSSED COLPOSCOPY FINDINGS. WILL CALL HER WITH BIOPSY RESULTS. REPEAT PAP TEST IN 1 YEAR IF RESULTS ARE NEGATIVE 04/12/2025 Encounter for screening for human papillomavirus [...] AGREED. WILL SCHEDULE. MISO/MOTRIN. Plan Of Treatment Pending Test Test Name Order Date MM Digital Mammo Screening 04/12/2025 Next Appt Details Provider Name:Sondra bennett, 11/16/2025 10:00:00 AM, [address], [address], [place], [address], Provider Name:Sondra bennett, 04/18/2026 09:40:00 AM, [address], [address], [place], [address], Insurance Providers Payer Name Payer Address Payer Phone Subscriber Number Group Number Insured Name Patient Relationship to Insured Coverage Start Date Coverage End Date [employer] [address] [place] [address] [id number] DEJUAN DALY Self - patient is the insured Medical (General) History Medical History History ICD Code Unspecified menopausal and perimenopausa l disorder N95.9 Other specified irregular menstruation N 92.5 Cervical high risk human papillomavirus (HPV) DNA test positive R87.810 Low grade squamous intraepit helial lesion on cytologic smear of cervix (LGSIL) R87.612 Surgical History Surgery Date(Month/Year) Sol Rolle 10/14/24 Breast Implants 2016 Hospitalization History Reason Date(Month/Year) See Surgical Hx
[2025-08-06 16:28] VITALS: BMI 31.1
--- NOTE | 2025-08-09 10:13 | HO.ANESPROP2 ---
Documented by User: Nohemi Fountain NP 08/09/25 10:14 HPI - Anesthesia Eval Consult details Narrative: 50 yr old female for right Arthroscopic Rotator Cuff Repair PMFSH Active Problems Active Problems: All Active Problems (Updated 04/16/25 @ 16:36 by Alina Hodge, [facility]) Abnormal uterine bleeding (Acute) Complete rotator cuff tear or rupture of right shoulder, not specified as traumatic (Acute) Encounter for change or removal of drains (Acute) Presence of other specified devices (Acute) History of liposuction of abdomen (Acute) S/P abdominoplasty (Acute) Abdominal swelling, LLQ (Acute) Painful arc syndrome of right shoulder (Acute) Obesity, Class I, BMI 30.0-34.9 (see actual BMI) (Acute) BMI 30.0-30.9,adult (Acute) Vegetarian diet (Acute) Laboratory exam ordered as part of routine general medical examination (Acute) Screen for colon cancer (Acute) Pre-operative clearance (Acute) Shoulder impingement syndrome (Acute) Muscle strain of right shoulder (Acute) Severe pain of right shoulder (Acute) Bilateral knee pain (Acute) Vision changes (Acute) Breast cancer screening by mammogram (Acute) Screening for cervical cancer (Acute) Annual physical exam (Acute) Past Medical History Medical History Painful arc syndrome of right shoulder Family History Family History Mother No problems noted. Father No problems noted. 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 Father No problems noted. 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 Cognitive needs: No Hearing needs: No Vision needs: Yes (Glasses) Meds Allergies Allergy/AdvReac Type Severity Reaction Status Date / Time No Known Allergies Allergy Verified 08/05/25 14:42 Exam Airway Mallampati Class: II TM Dist: >3cm Neck ROM: Full Heart: rrr Lungs: cta Assessment and Plan Assessment Anesthesia Assessment: Anesthesia Plan Discussed and Chart Reviewed Final Anesthetic Review Family History of Problems with Anesthesia: No History of Problems with Anesthesia: No NPO: Yes ASA Class: II Final Preanesthetic Review: No Changes in Pt Med Stat, Meds/Allgs Chart Reviewed, Consent Obtained/Reviewed and Anes Risks/Benef Reviewed Patient Risk: Low Procedure Risk: Intermediate Anesthetic Plan Anesthetic Plan: GA, Regional Block and Agree w/ Assess. and Plan Disposition: Standard PACU
[2025-08-11 07:11] VITALS: BMI 32.7
[2025-08-11 07:19] VITALS: BP 121/80; PULSE 85; RESP 16; TEMP 36.3; O2SAT 96
[2025-08-11 07:21] LABS: UPreg QC Valid YES
--- NOTE | 2025-08-11 07:29 | MHC.SHP ---
Pre-Procedural Eval Section A - 24 Hr Update-Section A only Date of Service: 08/11/25 The patient is an INPATIENT: No Changes since office visit: No Cold of Flu in the past 2 weeks, No New Medical Problems, No Changes in Medication and No Patient answered all questions The patient has been examined within 24 hours of the surgical procedure. The History & Physical has been completed within 30 days and I have reviewed it.: Yes Section B - Complete if H&P > 30 days Chief Complaint: Complete rotator cuff tear or rupture of right Allergies: Allergies Allergy/AdvReac Type Severity Reaction Status Date / Time No Known Allergies Allergy Verified 08/05/25 14:42 Plan I have reviewed the history and physical and performed a pertinent physical examination on my patient. No changes have occurred unless specified. Time Spent With Patient Time: Total time managing care of this patient today ____ minutes.
[2025-08-11] MEDS: Lactated Ringers 1,000 ML 100 ML IVCONT (07:35)
[2025-08-11 09:30] VITALS: BP 119/62; PULSE 90; RESP 18; TEMP 36.1; O2SAT 94
[2025-08-11 09:35] VITALS: BP 116/68; PULSE 94; RESP 18; O2SAT 94
[2025-08-11 09:40] VITALS: BP 116/62; PULSE 83; RESP 18; O2SAT 95
[2025-08-11 09:45] VITALS: BP 110/70; PULSE 80; RESP 16; O2SAT 93
[2025-08-11 10:00] VITALS: BP 115/68; PULSE 79; RESP 18; TEMP 36.1; O2SAT 95
--- NOTE | 2025-08-11 10:36 | PC.NURSE ---
PRESCRIPTIONS GIVEN TO PATIENT PRIOR TO TODAY BY DR. HUERTA'S OFFICE.
--- NOTE | 2025-08-11 16:22 | PM.OP ---
Brief Operative Note Date of Service: 08/11/25 Pre-op diagnosis: Right RTC tear Post-op diagnosis: same Procedure: Right RTC repair Implants: ibarra and nephew 2x2 double row Surgeon: Rishabh Rice MD Anesthesia: GETA and regional Was an Solutions Development Analyst used for this Procedure?: Yes Solutions Development Analyst: Megan Lacy Estimated blood loss (mL): 20 IV fluids (mL): 750 Pathology: none sent Condition: stable Disposition: PACU
--- NOTE | 2025-08-20 10:33 | W.PM.OPN ---
Operative Note Operative Note Date of Service: 08/11/25 Narrative: Date of Service: 08/11/25 Pre-op diagnosis: Right RTC tear Post-op diagnosis: same Procedure: Right RTC repair Implants: ibarra and nephew 2x2 double row Surgeon: Rishabh Rice MD Anesthesia: GETA and regional Was an Melt Room Operator used for this Procedure?: Yes Melt Room Operator: Megan Lacy Estimated blood loss (mL): 20 IV fluids (mL): 750 Pathology: none sent Condition: stable Disposition: PACU Procedure in detail: Patient was brought to the operating room and placed the the beach chair position. All bony prominences were well padded and the limb was prepped and draped in standard sterile fashion. A time out was called to identify proper site, proper procedure and proper surgeon. IV antibiotics per weight were administered. I began by making a posterolateral stab incision with a 15 blade. A blunt trochar was placed into the glenohumeral joint and I insufflated the joint with saline and a 30 degree arthroscope was placed. I established an outside- in anterior portal just distal to the biceps tendon. I then began my inspection of the glenohumeral joint. There was mild fraying of the biceps anchor and there were no cartilage changes at the glenoid or humeral head. There was a low grade partial thickness tear of the superior aspect of the subscapularis of ~10%. This and the superior glenoid were debrided,. There was a full thickness undersurface RTC tear ( supraspiantus). I then removed the trochar and entered the subacromial space. A direct lateral portal was then established and I performed a bursectomy. The cuff was then examined. There was a full thickness tear of the supraspinatus without retraction. The tear was mobile. I established a second lateral portal. I then I debrided the cuff and I placed two medial row double loaded anchors via a superior stab incision. A tap was used just adjacent to the articular cartilage and then the anchors inserted, I then brought the suture limbs ( 8) through the medial cuff using a looped suture passing technique. I then debrided the bare area down to bleeding bone and, using a cross bridge configuration, brought 4 limbs to each of two lateral 5.0 anchors. This re-approximated the cuff anatomy anatomically. A 5mm ant SAD was performed with an oval heber. Once I was satisfied with the repair final images were captured and I removed all instrumentation. Portals were closed with nylon. Patient was placed in an abduction sling, extubated and brought to the recovery room in stable condition. There were no known complications.
== END 2025-08-11 10:37 | disposition home or self-care (01) ==
LOC: HO.SSS 06:54
PROVIDERS: Nurse Practitioner; PCP Family Medicine; Visit Provider Orthopaedic Surgery
PROC: (CPT 29827; principal; 2025-08-11 08:30)
DX: M75.121 Complete rotator cuff tear or rupture of right shoulder, not specified as traumatic (principal); M25.511 Pain in right shoulder; M75.81 Other shoulder lesions, right shoulder; Z98.890 Other specified postprocedural states
CPT/HCPCS: 29827; 81025; C1713; J0131; J0165; J0665; J0690; J1100; J2003; J2250; J2371; J2405; J2704; J3010

== ENCOUNTER → 2025-08-11 06:54 | Outpatient (BNV) | payer OTHER, SELFPAY | PROVIDERS: PCP Family Medicine; Visit Provider Orthopaedic Surgery | DX: M75.121 Complete rotator cuff tear or rupture of right shoulder, not specified as traumatic (principal) | CPT/HCPCS: 29827 ==

== ENCOUNTER 2025-08-19 09:39 | Outpatient (AMB) | payer OTHER, SELFPAY ==
--- NOTE | 2025-08-19 09:49 | A.OFFVIS_ITS ---
Intake Visit Reasons: PO RT RTC repair 08/11/25 NE Intake Note: Gisela is a 50 year old female who presents today for a post op appointment status post right rotator cuff repair done on 08/11/[address] Rice. Patient reports she is feeling better. She states that she has been taking ibuprofen and Tylenol PM at the moment. Allergies No Known Allergies Allergy (Verified 08/19/25 09:51) HPI HPI PO RT RTC repair 08/11/25 NE: Details: Ms. Baires presents to the office today status post right shoulder rotator cuff repair performed on 08/11/[address] Rice. Patient presents to using the abduction sling positioned appropriately. She reports her pain has been managed in his taking ibuprofen without narcotics. She has been doing the pendulum exercises as instructed. No additional complaints. [facility] Medical History Painful arc syndrome of right shoulder Surgical History (Updated 08/19/25 @ 10:59 by Megan Lacy PA-C) H/O breast augmentation S/P panniculectomy Family History Mother No problems noted. Father No problems noted. 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 Sutures intact. No surrounding erythema or drainage. No signs of infection. 45 degrees forward flexion and abduction. External rotation to neutral. NVI. Psych Appearance: grossly normal Mental Status: mental status grossly normal Attitude: cooperative Assessment & Plan Assessment & Plan (1) Status post right rotator cuff repair: Code(s): Z98.890 - Other specified postprocedural states Category: Surgical Plan Ms. Baires presents to the office today status post right shoulder rotator cuff repair performed on 08/11/[address] Rice. Patient presents to using the abduction sling positioned appropriately. She reports her pain has been managed in his taking ibuprofen without narcotics. She has been doing the pendulum exercises as instructed. No additional complaints. While in the office today, sutures removed and Steri-Strips were applied. Patient was placed back into the abduction sling with instruction to remain in the sling for a total of 6 weeks postoperatively. No driving for 6 weeks while in the sling. A physical therapy prescription was provided to the patient with instruction to call our location here in [place] to set up an appointment within the next week. Should she have any issues she will contact the office and we will contact physical therapy to assist in making an appointment within an appropriate timeframe. She will follow up with Dr. Rice in 4 weeks, sooner if needed. Coding Level of Care Code Global (25529) Diagnoses Status post right rotator cuff repair Z98.890
--- OUTSIDE RECORDS SUMMARY | 2025-08-19 11:11 | XMS_ITS | Patient Health Record ---
Author Organization [employer] [facility] Address [address] [place] [address] Care Team Providers Care Retail Special Event Associate Name Role Phone BUCK MCGHEE Primary Care Provider Unavailab Sondra Aguilar Unavailable [phone] Allergies No Known Allergies Results Component Value Reference Range Notes Test, Urine Reviewed date:06/10/2025 04:43:41 PM Interpretation: Performing Lab: Notes/Report: Test, Urine negative [id number] IGP No Culture 30 Plus Reviewed date:05/04/2025 11:56:28 AM Interpretation: Performing Lab:[facility], [address] [place] [address], Phone - [phone], Director - [facility] Notes/Report: Clinical Information:Vaginal/Cervical, LMP: 6/2 10/31 [id number] LMP / Prev Treat...[id number] Dates / Results....01/15/23 NIL, Neg HPV No. of containers..01 ThinPrep Vial DIAGNOSIS: EPITHELIAL CELL ABNORMALITY. LOW GRADE SQUAMOUS INTRAEPITHELIAL LESION (LSIL). Specimen adequacy: Satisfactory for evaluation. Endocervical and/or squamous metaplastic cells (endocervical component) are present. Clinician provided ICD10: Z01.419 Z11.51 Performed by: Iker barakat, Inspector Wreath (ASCP) Electronically signed by: Swapnil Noble MD, [...] Criteria not met, HPV Genotype not performed. Test, Urine Reviewed date:05/17/2025 09:26:55 AM Interpretation: Performing Lab: Notes/Report: Test, Urine Negative SURGICAL PATHOLOGY Reviewed date:05/20/2025 05:53:55 PM Interpretation: Performing Lab:Testing performed or reported by [facility], a Service of [facility], [address] [place] [address] Prudencio Miller MD, Procurement Professional Logistics [facility]# [id number] Notes/Report: Patient Name: DEJUAN DALY Lab Patient : 1975 (Age: 49) Collection Date: 05/17/2025 Accession Date: 05/17/2025 Sign Out Date: 05/20/2025 Tissue Source: 1:ECC 2:CX BX 4:00 3:CX BX 12:00 Final Diagnosis: 1. Endocervix, curettage: - Mucus and scant endocervical tissue fragments (see note). Note: The scant quantity of tissue received may not be customer success representative of the endocervix. 2. Cervix, 4 o'clock, biopsy: - Squamous mucosa, negative for squamous intraepithelial lesion. - Transformation zone mucosa is not represented. 3. Cervix, 12 o'clock, biopsy: - Squamous mucosa, negative for squamous intraepithelial lesion. - Transformation zone mucosa is not represented. Primary Pathologist:Gavin Valencia M.D. electronically signed out by: Gavin Valencia M.D. / [facility] Clinical History: 49-year-old female, cervical high risk [...] specimen processing and staining is performed at [facility], [address] [place] [address] (CLIA#[id number]). Its performance characteristics [facility] by [facility]. Torie Murray M.D. Procurement Professional Logistics of Surgical Pathology, Carloz Kaur M.D. Procurement Professional Logistics Cytopathology Phone #: [phone], On-Call Pathologist: [id number] PDF Report Reviewed date:04/14/2025 04:16:28 PM Interpretation: Performing Lab:[facility], [address] [place] [address], Phone - [phone], Director - [facility] Notes/Report: Clinical Information:Vaginal/Cervical, LMP: 03/08 10/31 [id number] LMP / Prev Treat...[id number] Dates / Results....01/15/23 NIL, Neg HPV No. of containers..01 ThinPrep Vial Reason For Referral No Information Medications Medication [...] test positive, high risk on vaginal specimen ([id number]) Cervical high risk human papillomavirus (HPV) DNA test positive (R87.810) Active confirmed Problem Irregular Menstruation (80456342) Other specified irregular menstruation (N92.5) Active confirmed Problem Abnormal uterine bleeding (60648414834401) Abnormal uterine and vaginal bleeding, unspecified (N93.9) Active confirmed Problem Unspecified menopausal and perimenopausal disorder (N95.9) Active confirmed Problem care (826550907) Supervision of other normal (V22.1) Active confirmed Diag Problem Gynecological examination normal (248873523629094) Routine gynecological examination (V72.31) Active confirmed Major Vital Signs Temperature 98.1 degrees Fahrenheit 05/17/2025 Blood pressure diastolic 76 mm Hg 05/17/2025 Height 66 in 05/17/2025 Blood pressure systolic 124 mm Hg 05/17/2025 Weight 199 lbs 05/17/2025 BMI 32.12 kg/m2 05/17/2025 Encounters Encounter Location Date Provider Diagnosis [place] [address] [employer] [address] [address] 04/12/2025 Sondra Olmstead Encounter for gynecological examination (general) (routine) without abnormal findings Z01.419 ; Encounter for screening for human papillomavirus (HPV) Z11.51 ; Encounter for screening mammogram for malignant neoplasm of breast Z12.31 ; Personal history of other diseases of the female genital tract Z87.42 ; Unspecified menopausal and perimenopausal disorder N95.9 and Other specified irregular menstruation N92.5 [place] [address] [employer] [address] [address] 05/17/2025 Sondra Olmstead Cervical high risk human papillomavirus (HPV) DNA test positive R87.810 and Low grade squamous intraepithelial lesion on cytologic smear of cervix (LGSIL) R87.612 [place] [address] [employer] [address] [place] [address] 06/10/2025 Sondra Olmstead Abnormal uterine and vaginal bleeding, unspecified N93.9 [facility] [address] [place] [address] 05/21/2025 Sondra Olmstead Assessments Encounter Date Diagnosis [...] Provider Name:Sondra bennett, 11/16/2025 10:00:00 AM, [address], [address], [place], [address], Provider Name:Sondra bennett, 04/18/2026 09:40:00 AM, [address], [address], [place], [address], Insurance Providers Payer Name Payer Address Payer Phone Subscriber Number Group Number Insured Name Patient Relationship to Insured Coverage Start Date Coverage End Date [facility] [address] [place] [address] [id number] DEJUAN DALY Self - patient is [...]
== END 2025-08-19 10:28 | disposition home or self-care (01) ==
LOC: HO.HOS 09:40
PROVIDERS: Visit Provider Physician Assistant
DX: Z98.890 Other specified postprocedural states (principal)
CPT/HCPCS: 99024

== ENCOUNTER 2025-09-16 13:54 | Outpatient (AMB) | payer OTHER, SELFPAY ==
--- NOTE | 2025-09-16 14:00 | A.OFFVIS_ITS ---
Intake Visit Reasons: PO RT RTC repair 08/11/25 NE Intake Note: Gisela is a 50 year old right hand dominant female who presents today for a post operative appointment about 5 weeks s/p Right RTC Repair 08/11/25. Patient reports that she is slowly improving, she has mild pain. Some increased pain s/p physical therapy. Allergies No Known Allergies Allergy (Verified 08/19/25 09:51) HPI HPI PO RT RTC repair 08/11/25 NE: Details: Gisela is a 50 year old right hand dominant female who presents today for a post operative appointment about 5 weeks s/p Right RTC Repair 08/11/25. Patient reports that she is slowly improving, she has mild pain. Some increased pain s/p physical therapy. [facility] Medical History (Updated 08/25/25 @ 07:46 by SHEREEN Wong-LILIA) Complete rotator cuff tear or rupture of right shoulder, not specified as traumatic Bilateral knee pain Painful arc syndrome of right shoulder Surgical History (Updated 08/25/25 @ 07:46 by KALI Wong) History of liposuction of abdomen S/P abdominoplasty H/O breast augmentation S/P panniculectomy Family History Mother No problems noted. Father No problems noted. Other Mental health disorder Social History Housing: House Alcohol intake: current Alcohol intake frequency: a few times a week Patient Tobacco Use Status: Never used Tobacco e-Cigarette/Vaping Use: Never Used Second Hand Smoke Exposure: No service: No Current occupational status: employed Current occupation: [employer]/ right hand dominant Cognitive needs: No Hearing needs: No Vision needs: Yes (Glasses) Physical Exam Exam Exam: Incision is clean dry and intact 30 degrees external rotation and 80 degrees passive abduction with mild discomf ort. Assessment & Plan Assessment & Plan (1) Status post right rotator cuff repair: Onset Date: ~08/2025 Comment: DR HUERTA Code(s): Z98.890 - Other specified postprocedural states Category: Surgical Plan: Doing well status post right shoulder arthroscopy. She had a straight forward rotator cuff repair. I recommend continuing physical therapy and she may discontinue sling. Follow up with PA in 7 weeks. Coding Level of Care Code Global (38975) Diagnoses Status post right rotator cuff repair Z98.890
--- OUTSIDE RECORDS SUMMARY | 2025-09-16 21:12 | XMS_ITS | Patient Health Record ---
Author Organization [facility] Address [address] [place] [address] [address] [place] [address] Care Team Providers Care Ekg Technician Name Role Phone BUCK MCGHEE Primary Care Provider Unavailab Sondra Aguilar Unavailable [phone] Allergies No Known Allergies Results Component Value Reference Range Notes [id number] [id number] No Culture 30 Plus Reviewed date:05/04/2025 11:56:28 AM Interpretation: Performing Lab:[facility], [address] [place] [address], Phone - [phone], Director - [facility] Notes/Report: Clinical Information:Vaginal/Cervical, LMP: 6/2 10/31 [id number] LMP / Prev Treat...CSQ=[id number] Dates / Results....01/15/23 NIL, Neg HPV No. of containers..01 ThinPrep Vial DIAGNOSIS: EPITHELIAL CELL ABNORMALITY. LOW GRADE SQUAMOUS INTRAEPITHELIAL LESION (LSIL). Specimen adequacy: Satisfactory for evaluation. Endocervical and/or squamous metaplastic cells (endocervical component) are present. Clinician provided ICD10: Z01.419 Z11.51 Performed by: Iker barakat, Vice President Network (ASCP) Electronically signed by: Swapnil Noble MD, [...] Report Reviewed date:04/14/2025 04:16:28 PM Interpretation: Performing Lab:[facility], [address] [place] [address], Phone - [phone], Director - [facility] Notes/Report: Clinical Information:Vaginal/Cervical, LMP: 6/2 10/31 [id number] LMP / Prev Treat...ADR=[id number] Dates / Results....01/15/23 NIL, Neg HPV No. of containers..01 ThinPrep Vial Test, Urine Reviewed date:06/10/2025 04:43:41 PM Interpretation: Performing Lab: Notes/Report: Test, Urine negative Test, Urine Reviewed date:05/17/2025 09:26:55 AM Interpretation: Performing Lab: Notes/Report: Test, Urine Negative SURGICAL PATHOLOGY Reviewed date:05/20/2025 05:53:55 PM Interpretation: Performing Lab:Testing performed or reported by [facility], a Service of [facility], [address] [place] [address] Prudencio Miller MD, Title Vehicle Service Attendant EVGENY# [id number] Notes/Report: Patient Name: DEJUAN DALY Lab Patient : [id number] (Age: 49) Collection Date: 05/17/2025 Accession Date: 05/17/2025 Sign Out Date: 05/20/2025 Tissue Source: 1:ECC 2:CX BX 4:00 3:CX BX 12:00 Final Diagnosis: 1. Endocervix, curettage: - Mucus and scant endocervical tissue fragments (see note). Note: The scant quantity of tissue received may not be medical detail representative of the endocervix. 2. Cervix, 4 o'clock, biopsy: - Squamous mucosa, negative for squamous intraepithelial lesion. - Transformation zone mucosa is not represented. 3. Cervix, 12 o'clock, biopsy: - Squamous mucosa, negative for squamous intraepithelial lesion. - Transformation zone mucosa is not represented. Primary Pathologist:Gavin Valencia M.D. electronically signed out by: Gavin Valencia M.D. / [facility] Clinical History: 49-year-old female, cervical high risk [...] specimen processing and staining is performed at [facility], [address] [place] [address] (CLIA#[id number]). Its performance characteristics determined by [facility]. Torie Murray M.D. Title Vehicle Service Attendant of Surgical Pathology, Carloz Kaur M.D. Title Vehicle Service Attendant Cytopathology Phone #: [phone], On-Call Pathologist: [id number] Reason For Referral No Information Medications Medication [...] test positive, high risk on vaginal specimen ([id number]) Cervical high risk human papillomavirus (HPV) DNA test positive (R87.810) Active confirmed Problem Irregular Menstruation (39712833) Other specified irregular menstruation (N92.5) Active confirmed Problem Abnormal uterine bleeding (86335336285277) Abnormal uterine and vaginal bleeding, unspecified (N93.9) Active confirmed Problem Unspecified menopausal and perimenopausal disorder (N95.9) Active confirmed Problem care (496779051) Supervision of other normal (V22.1) Active confirmed Diag Problem Gynecological examination normal (577649439450825) Routine gynecological examination (V72.31) Active confirmed Major Vital Signs Temperature 98.1 degrees Fahrenheit 05/17/2025 Blood pressure diastolic 76 mm Hg 05/17/2025 Height 66 in 05/17/2025 Blood pressure systolic 124 mm Hg 05/17/2025 Weight 199 lbs 05/17/2025 BMI 32.12 kg/m2 05/17/2025 Encounters Encounter Location Date Provider Diagnosis [place] [address] [facility] [address] [address] 04/12/2025 Sondra Olmstead Encounter for gynecological examination (general) (routine) without abnormal findings Z01.419 ; Encounter for screening for human papillomavirus (HPV) Z11.51 ; Encounter for screening mammogram for malignant neoplasm of breast Z12.31 ; Personal history of other diseases of the female genital tract Z87.42 ; Unspecified menopausal and perimenopausal disorder N95.9 and Other specified irregular menstruation N92.5 [place] [address] [facility] [address] [address] 05/17/2025 Sondra Olmstead Cervical high risk human papillomavirus (HPV) DNA test positive R87.810 and Low grade squamous intraepithelial lesion on cytologic smear of cervix (LGSIL) R87.612 [place] [address] [facility] [address] [place] [address] 06/10/2025 Sondra Olmstead Abnormal uterine and vaginal bleeding, unspecified N93.9 [facility] [address] [place] [address] 05/21/2025 Sondra Olmstead Assessments Encounter Date Diagnosis [...] Provider Name:Sondra bennett, 11/16/2025 10:00:00 AM, [address], [address], [place], [address], Provider Name:Sondra bennett, 04/18/2026 09:40:00 AM, [address], [address], [place], [address], Insurance Providers Payer Name Payer Address Payer Phone Subscriber Number Group Number Insured Name Patient Relationship to Insured Coverage Start Date Coverage End Date [employer] [address] [place] [address] [id number] DEJUAN DALY Self - patient is the insured Medical (General) History Medical History History ICD Code Unspecified menopausal and perimenopausa l disorder N95.9 Other specified irregular menstruation N 92.5 Cervical high risk human papillomavirus (HPV) DNA test positive R87.810 Low grade squamous intraepit helial lesion on cytologic smear of cervix (LGSIL) R87.612 Surgical History Surgery Date(Month/Year) Breast Implants 2015 [facility] 10/14/24 Hospitalization History Reason Date(Month/Year) See Surgical Hx
== END 2025-09-16 14:24 | disposition home or self-care (01) ==
LOC: HO.HOS 13:55
PROVIDERS: PCP Nurse Practitioner Family; Visit Provider Orthopaedic Surgery
DX: Z98.890 Other specified postprocedural states (principal)
CPT/HCPCS: 99024